=== PATIENT | female | born 1955 | race Two or more races ===

== ENCOUNTER 2023-12-15 12:35 | Emergency (ER) | payer BC, OTHER ==
[~2023-12-15] VITALS: Ht 157.5 cm; Wt 85.0 kg
[2023-12-15 14:04] LABS: Urine Bacteria FEW /hpf (None Seen); Urine Blood Negative /uL (Negative); Urine Clarity HAZY (Clear); Urine Color Straw (Yellow); Urine Mucus FEW (None Seen); Urine Protein, UAD Negative (Negative); Urine Specific Gravity 1.019 (1.001-1.035); Urine Urobilinogen Normal (Negative); Urine WBC 17 /hpf (0 - 5)
[2023-12-15 14:53] LABS: Basophils # (auto) 0 10 ^3/uL (0-0.2); Eosinophils # (auto) 0.2 10 ^3/uL (0-0.8); Eosinophils % (auto) 2.1 % (0.0-7.0); Lymphocytes # (auto) 1.4 10 ^3/uL (0.4-5.4); Mean Corpuscular Hemoglobin 19.2 pg (28.0-32.0); Nucleated Red Blood Cells % 0.1 %
[2023-12-15 14:55] LABS: Basophils % (auto) 0.3 % (0.0-2.0); Hematocrit 32.9 % (36.0-46.0); Hemoglobin 9.9 g/dL (12.2-16.2); Lymphocytes % (auto) 12.1 % (10.0-50.0); Mean Corpuscular Volume 63.9 fL (80.0-100.0); Monocytes # (auto) 0.5 10 ^3/uL (0-1.3); Neutrophils # (auto) 9.2 10 ^3/uL (1.6-8.6); Neutrophils % (auto) 81.5 % (37.0-80.0); Red Blood Cells 5.14 10^6/uL (4.0-5.20); Red Cell Distribution Width 14.9 % (11.8-14.3); White Blood Cell 11.3 10^3/uL (4.4-10.8)
[2023-12-15] MEDS ORDERED: SULFAMETHOX W/TRIMETH(800/160MG) DS TAB PO ONE (15:00)
[2023-12-15 15:12] LABS: Alanine Aminotransferase 21 U/L (7-40); Albumin 4.4 g/dL (3.2-4.8); Alkaline Phosphatase 113 U/L (46-116); Anion Gap 5 (5-15); Aspartate Aminotransferase 15 U/L (13-40); BUN/Creatinine Ratio 35.7 (10.0-20.0); Bilirubin, Total 0.6 mg/dL (0.2-1.0); Blood Urea Nitrogen 25 mg/dL (9-23); Calcium 9.3 mg/dL (8.7-10.4); Carbon Dioxide 27 mmol/L (20-30); Chloride 106 mmol/L (98-107); Glucose 111 mg/dL (74-106); Potassium 4.6 mmol/L (3.5-5.1); Sodium 138 mmol/L (136-145)
[2023-12-15 15:13] LABS: Total Protein 6.9 g/dL (5.7-8.2)
[2023-12-15] MEDS ORDERED: ZOFR4T PO ×3 (15:24→16:26)
[2023-12-15] MEDS ORDERED: BACDST PO ×3 (15:24→16:26)
[2023-12-15] MEDS ORDERED: ALBU108A5 IN ×3 (15:24→16:26)
[2023-12-15] MEDS ORDERED: MECL1TAB42 PO ×3 (15:24→16:26)
[2023-12-15] MEDS ORDERED: DOCU-94 PO ×3 (15:29→16:26)
[2023-12-15] MEDS ORDERED: FER325T PO ×3 (15:29→16:26)
[2023-12-15 15:58] VITALS: BP 137/55; PULSE 76; RESP 16; TEMP 98.6; O2SAT 98
[2023-12-15 16:26] LABS: Anisocytosis Slight; Hypochromia Marked; Ovalocytes FEW; Platelet Estimate Adequate
[2023-12-15 16:27] LABS: Tear Drop Cells FEW
== END 2023-12-15 15:59 | disposition home or self-care (01) ==
LOC: ER 12:35
DX: D64.9 Anemia, unspecified (principal); N39.0 Urinary tract infection, site not specified; I10 Essential (primary) hypertension; E11.9 Type 2 diabetes mellitus without complications; Z79.899 Other long term (current) drug therapy
CPT/HCPCS: 36415; 70450; 80053; 81001; 82962; 84484; 85025; 93005

== ENCOUNTER 2025-02-06 06:54 | Inpatient (IN) | payer BC, MEDICARE ==
[2025-02-06] VITALS (8 sets, daily range): BP systolic 100–124; BP diastolic 45–53; PULSE 67–71; RESP 16; TEMP 97.6–98.6; O2SAT 93–100
[~2025-02-06] VITALS: Ht 157.5 cm; Wt 82.7 kg
[~2025-02-06 06:54] MED LIST: ALBU108A5 IN; AZIT-74 PO; DOCU-94 PO; FER325T PO; MECL1TAB42 PO; METH4PAK PO; ZOFR4T PO
--- NOTE | 2025-02-06 07:15 | ECG ---
[facility] Test Date: 2025-02-06 Test Time: 07:00:10 Pat Name: JAY TAYLOR Department: ER [facility] F Soil Chemist: JAIME : 1955 Requested By: LARISA SIMMS Order Number: [id number] Reading MD: Jose Graham Measurements Intervals [place] Rate: 66 P: 75 DC: 169 QRS: 27 QRSD: 100 T: 46 QT: 493 QTc: 517 Interpretive Statements Sinus rhythm Prolonged QT interval Electronically Signed On 02-10-2025 18:40:36 PDT by Jose Graham Please click the below link to view image of tracing.
--- NOTE | 2025-02-06 07:20 | ED.PDOC ---
History of Present Illness HPI Comments 69 year old female brought in by EMS presents to the ED with a chief complaint of syncope onset today (02/06/25) around 05:00. Per EMS, patient went to the bathroom, got up was experiencing dizziness, hit the RT isde head on tile armando, when she woke up she walked to the couch and called family who lives next door. Upon EMS arrival all VSS, patient was experiencing neck pain, nausea, C-collar was placed, Zofran was given. Patient states she is currently experiencing dizziness, neck pain, rates 10/10 pain, eye redness with discomfort. PMHx HTN, DM, HLD, breast cancer, asthma. Denies chest pain, shortness of breath, vomiting, diarrhea, abdominal pain. No other symptoms or modifying factors present at this time\. Time Seen by MD: 07:12 Primary Care Provider: ARELI Reviewed Notes: Medications, Allergies Allergies: Coded Allergies: Amoxicillin (Verified Allergy, Severe, 03/10/24) Clavulanic Acid (Verified Allergy, Unknown, 03/10/24) Home Meds Active Scripts Azithromycin (Zithromax) 250 Mg Tab, 250 MG PO DAILY for 3 Days, #3 TAB Prov:RAINER ZACARIAS MD 03/13/24 Methylprednisolone (Medrol Dosepak) 4 Mg Marlo, 4 MG PO UD, #21 TAB UAD Prov:RAINER ZACARIAS MD 03/13/24 Albuterol Sulfate (Albuterol Sulfate Hfa) 108 Mcg/Act Aer, 108 MCG IN Q4HP PRN, #1 AER Prov:KALEE BENITEZ MD 03/09/24 Docusate Sodium (Colace) 100 Mg Cap, 1 CAP PO BID, #30 CAP Prov:ANGEL WHITEHEAD PAC 12/15/23 Ferrous Sulfate (FERROUS SULFATE) 325 Mg Tb, 1 TAB PO DAILY, #30 TAB 3 Refills Prov:ANGEL WHITEHEAD PAC 12/15/23 Ondansetron Odt 4MG Tab (ZOFRAN PO) 4 Mg Tb, 4 MG PO Q6HP PRN, #15 TAB ODT TAB-DISSOLVE IN MOUTH, THEN SWALLOW Prov:ANGEL WHITEHEAD PAC 12/15/23 Meclizine HCl (Meclizine 25) 25 Mg Tab, 25 MG PO Q12HP PRN, #10 TAB Prov:ANGEL WHITEHEAD PAC 12/15/23 Information Source: Patient Mode of Arrival: EMS Severity: Moderate Timing: Hours Duration: Since onset Prehospital treatment: C-Collar, Other (Zofran) Past Medical History PAST MEDICAL HISTORY: Asthma, Cancer, DM, High Lipids, HTN Surgical History: Denies all surgeries 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 Family History Family History: No family hx of Heart jyothi, No family hx of HTN, No family hx ofKidney jyothi, No family hx of Liver jyothi, No family hx of Lung jyothi, No family hx of Stroke, Family hx of DM, Family hx of Cancer Social History Smoker: Non-Smoker, Secondhand Alcohol: Denies ETOH Use Drugs: Denies Drug Use Lives In: Home Constitutional: denies: chills, diaphoresis, fatigue, fever, malaise, sweats, weakness, others EENTM: reports: eye redness; denies: blurred vision, double vision, ear bleeding, ear discharge, ear drainage, ear pain, ear ringing, eye pain, hearing loss, mouth pain, mouth swelling, nasal discharge, nose bleeding, nose congestion, nose pain, photophobia, tearing, throat pain, throat swelling, voice changes, others Respiratory: denies: cough, hemoptysis, orthopnea, SOB at rest, shortness of breath, SOB with excertion, stridor, wheezing, others Cardiovascular: denies: chest pain, dizzy spells, diaphoresis, Dyspnea on exertion, edema, irregular heart beat, left arm pain, lightheadedness, palpitations, PND, syncope, others Gastrointestinal: reports: nausea; denies: abdomen distended, abdominal pain, blood streaked bowels, constipated, diarrhea, dysphagia, difficulty swallowing, hematemesis, melena, poor appetite, poor fluid intake, rectal bleeding, rectal pain, vomiting, others Neurological: reports: dizziness, headache (RT side ); denies: fainting, left sided numbness, left sided weakness, numbness, paresthesia, pre-existing deficit, right sided numbness, right sided weakness, seizure, speech problems, tingling, tremors, weakness, others Musculoskeletal: reports: neck pain; denies: back pain, gout, joint pain, joint swelling, muscle pain, muscle stiffness, others Integumetry: denies: bruises, change in color, change in hair/nails, dryness, laceration, lesions, lumps, rash, wounds, others Allergic/Immunocompromised: denies: Difficulty Healing, Frequent Infections, Hives, Itching, others Hematologic/Lymphatic: denies: anemia, blood clots, easy bleeding, easy bruising, swollen glands, others Endocrine: denies: excessive hunger, excessive sweating, excessive thirst, excessive urination, flushing, intolerance to cold, intolerance to heat, unexplained weight gain, unexplained weight loss, others Psychiatric: denies: anxiety, bipolar disorder, depression, hopeless, panic disorder, schizophrenia, sleepless, suicidal, others All Other Systems: Reviewed and Negative Physical Exam General Appearance: No Apparent Distress, Normal HEENT: Normal ENT Inspection, Pharynx Normal, TMs Normal Neck: Full Range of Motion, Non-Tender, Normal, Normal Inspection Respiratory: Chest Non-Tender, Lungs Clear, No Accessory Muscle Use, No Respiratory Distress, Normal Breath Sounds Cardiovascular: No Edema, No JVD, No Murmur, No Gallop, Normal Peripheral Pulses, Regular Rate/Rhythm Breast Exam: Deferred Gastrointestinal: No Organomegaly, Non Tender, No Pulsatile Mass, Normal Bowel Sounds, Soft Genitalia: Deferred Pelvic: Deferred Rectal: Deferred Extremities: No calf tenderness, Normal capillary refill, Normal inspection, Normal range of motion, Non-tender, No pedal edema Musculoskeletal : Apperance: Normal Neurologic: Alert, technical spec II-XII nml as Tested, No Motor Deficits, Normal Affect, Normal Mood, No Sensory Deficits Cerebellar Function: Normal Reflexes: Normal Skin: Dry, Normal Color, Warm Lymphatic: No Adenopathy Was a procedure done? Was a procedure done?: No Differential Dx Considerations may include: ACS, CVA, cardiac arrhythmia, electrolyte abnormalities, infectious etiology X-Ray, Labs, Meds, VS Vital Signs Date Time Temp Pulse Resp B/P (MAP) Pulse Ox O2 Delivery O2 Flow Rate FiO2 02/06/25 07:17 98.9 67 18 165/67 (99) 98 02/06/25 07:00 66 Lab Test 02/06/25 07:36 Range/Units White Blood Count 12.3 H 4.4-10.8 10^3/uL Red Blood Count 5.69 H 4.0-5.20 10^6/uL Hemoglobin 10.8 L 12.2-16.2 g/dL Hematocrit 35.7 L 36.0-46.0 % Mean Corpuscular Volume 62.8 L 80.0-100.0 fL Mean Corpuscular Hemoglobin 18.9 L 28.0-32.0 pg Mean Corpuscular Hemoglobin Concent 30.1 L 32.0-36.0 g/dL Red Cell Distribution Width 15.3 H 11.8-14.3 % Platelet Count 296 140-450 10^3/uL Mean Platelet Volume 9.0 6.9-10.8 fL Neutrophils (%) (Auto) 81.9 H 37.0-80.0 % Lymphocytes (%) (Auto) 11.5 10.0-50.0 % Monocytes (%) (Auto) 3.9 0.0-12.0 % Eosinophils (%) (Auto) 2.5 0.0-7.0 % Basophils (%) (Auto) 0.2 0.0-2.0 % Neutrophils # (Auto) 10.1 H 1.6-8.6 10 ^3/uL Lymphocytes # (Auto) 1.4 0.4-5.4 10 ^3/uL Monocytes # (Auto) 0.5 0-1.3 10 ^3/uL Eosinophils # (Auto) 0.3 0-0.8 10 ^3/uL Basophils # (Auto) 0 0-0.2 10 ^3/uL Nucleated Red Blood Cells 0.1 % Platelet Estimate Pending Sodium Level 139 136-145 mmol/L Potassium Level 3.8 3.5-5.1 mmol/L Chloride Level 104 98-107 mmol/L Carbon Dioxide Level 28 20-31 mmol/L Anion Gap 7 5-15 Blood Urea Nitrogen 24 H 9-23 mg/dL Creatinine 0.82 0.550-1.02 mg/dL Glomerular Filtration Rate Calc 76 >90 mL/min BUN/Creatinine Ratio 29.3 H 10.0-20.0 Serum Glucose 161 H 74-106 mg/dL Calcium Level 9.5 8.7-10.4 mg/dL Troponin I High Sensitivity 3 L </=34 ng/L [facility] [id number] [place] [id number] Ph: [phone] DIAGNOSTIC IMAGING Diagnostic Imaging Report : [id number] Signed PATIENT: JAY TAYLOR ACCT: [id number] UNIT: [id number] : 1955 LOC: ER ROOM / BED: / AGE / SEX: 69 / F ADM STATUS: REG ER SERVICE 3 ORDERING PHYSICIAN: LARISA SIMMS MD PROCEDURE(s): CS2 - CERVICAL WITHOUT CONTRAST REASON: syncope ORDER NUMBER(s): [id number], ACCESSION NUMBER(s): [id number] EXAM: CT CERVICAL WITHOUT CONTRAST INDICATION: syncope EXAM DATE: 02/06/2025 07:44 AM COMPARISON: None TECHNIQUE: Multiple axial CT images of the cervical spine were obtained using bone algorithm. Axial and coronal reformatting was done. Bone and soft tissue windows were reviewed. Radiation Dose Information: CT Dose: CTDI volume is 23.9 mGy. Dose-length product is 662.6 mGy*cm FINDINGS: The cervical alignment is intact. No acute cervical spine fracture is identified. The vertebral body heights are intact. No suspicious osseous lesions are identified. No significant degenerative changes are identified. No significant spinal or neural foraminal stenosis. There is no prevertebral soft tissue swelling. The lung apices are clear. IMPRESSION: 1. No evidence of acute cervical spine fracture or traumatic malalignment. All CT scans at this medical facility are performed using dose modulation techniques as appropriate to a performed exam including the following: Automated exposure control was utilized; adjustment of the MA and/or KV according to patient size; and use of iterative reconstruction technique. ATED BY: MOSHE LAMBERT MD DICTATED DATE/TIME: 02/06/25812 SIGNED BY: MOSHE LAMBERT MD SIGNED DATE/TIME: 02/06/25812 CC: [place] [id number] Ph: [phone] DIAGNOSTIC IMAGING Diagnostic Imaging Report : [id number] Signed PATIENT: JAY TAYLOR ACCT: [id number] UNIT: [id number] : 1955 LOC: ER ROOM / BED: / AGE / SEX: 69 / F ADM STATUS: REG ER SERVICE 3 ORDERING PHYSICIAN: LARISA SIMMS MD PROCEDURE(s): CXRP - CHEST PORTABLE REASON: syncope ORDER NUMBER(s): [id number], ACCESSION NUMBER(s): [id number] EXAM: XY CHEST PORTABLE Indication: syncope Technique: Single frontal view of the chest was obtained Comparison: XY CHEST PORTABLE on DOS: 03/13/24, XY CHEST PORTABLE on DOS: 03/11/24, XY CHEST PORTABLE on DOS: 03/09/24 FINDINGS: Lines and Tubes: None Lungs: No focal consolidation. Pleura: No effusion. No pneumothorax. Cardiomediastinal contours: Unremarkable Bones: No acute osseous abnormality. IMPRESSION: No acute cardiopulmonary disease. ATED BY: YADIEL THOMAS MD DICTATED DATE/TIME: 02/06/25809 SIGNED BY: YADIEL THOMAS MD SIGNED DATE/TIME: 02/06/25809 CC: [place] [id number] Ph: [phone] DIAGNOSTIC IMAGING Diagnostic Imaging Report : [id number] Signed PATIENT: JAY TAYLOR ACCT: [id number] UNIT: [id number] : 1955 LOC: ER ROOM / BED: / AGE / SEX: 69 / F ADM STATUS: REG ER SERVICE 3 ORDERING PHYSICIAN: LARISA SIMMS MD PROCEDURE(s): HWOCT - HEAD WITHOUT CONTRAST REASON: syncope ORDER NUMBER(s): [id number], ACCESSION NUMBER(s): [id number] CLINICAL INFORMATION: 69 years old, Female; syncope. TECHNIQUE: Axial imaging was obtained through the brain without contrast. Coronal and sagittal reformatted images were obtained, reviewed, and stored. Images were reviewed in brain and bone windows. All CT scans at this medical facility are performed using dose modulation techniques as appropriate to a performed exam including the following: Automated exposure control was utilized; adjustment of the MA and/or KV according to patient size; and use of iterative reconstruction technique. CTDIvol = 66.62, 0.07, 0.07 mGy DLP = 1310.87, 3.16, 3.16 mGy-cm COMPARISON: CT HEAD WITHOUT CONTRAST on DOS: 12/15/23 FINDINGS: There is no acute intracranial hemorrhage. No mass effect or midline shift. Encephalomalacia in the left anterior frontal lobe and left temporal lobe appear similar compared to the prior exam. The ventricles and sulci are within normal limits in size for age. Basal cisterns are patent. Postsurgical changes in the left frontoparietal and temporal calvarium appear similar compared to the prior exam. There is a moderate right frontal scalp hematoma. Mild mucosal thickening of the paranasal sinuses. Mastoid air cells are clear. IMPRESSION: 1. No CT evidence of acute intracranial abnormality. 2. Moderate right frontal scalp hematoma. 3. Stable appearing postsurgical changes and areas of encephalomalacia as described above. ATED BY: RD CORONADO DO DICTATED DATE/TIME: 02/06/25813 SIGNED BY: RD CORONADO DO SIGNED DATE/TIME: 02/06/25813 CC: Time of 1ST Reevaluation: 08:48 Reevaluation 1ST: Improved Patient Education/Counseling: Diagnosis, Treatment Family Education/Counseling: No Family Present Additional Information The following tests were ordered, and results were reviewed by me: EKG, BMP, CBC, TROP -x3, UA, XY CHEST, CT HEAD WITHOUT CONTRAST, CT CERVICAL WITHOUT CONTRAST, Additional Information was gathered from interviewing the following independent historians: EMS I reviewed and agreed with the following test results read by other providers: XY CHEST, CT HEAD WITHOUT CONTRAST, CT CERVICAL WITHOUT CONTRAST, I discussed treatment and results with medical personnel and: patient Departure 1 Departure Time of Disposition: 08:47 (Patient presented with syncope today and should be admitted. Data: 1. I ordered and reviewed the result of at least 3 labs including a CBC, BMP, and troponin. 2. I independently interpreted the following tests: EKG which shows a normal sinus rhythm and a chest x-ray which shows benign chest and a CT head which shows benign brain.Risk:This patient has a high risk of morbidity due to further diagnostic testing or treatment and may suffer from an acute cardiac, neurologic, or infectious disorder. Rationale: Patient should be admitted to the hospital for further management.) Impression: Primary Impression: Syncope and collapse Additional Impression: Generalized weakness Disposition: 09 ADMITTED INPATIENT Admit to: Med Surg Condition: Serious Critical Care Note Critical Care Time?: No Stability Stability form required: No I personally scribed for LARISA SIMMS MD ([email or web address]) on 02/06/25 at 07:20. Electronically submitted by Katie Rodriguez ([email or web address]). I personally scribed for LARISA SIMMS MD ([email or web address] on 02/06/25 at 07:21. Electronically submitted by Katie Rodriguez ([email or web address]). I personally scribed for LARISA SIMMS MD ([email or web address]) on 02/06/25 at 08:32. Electronically submitted by Katie Rodriguez ([email or web address]). LARISA SIMMS MD Feb 06, 2025 07:20
[2025-02-06 08:01] LABS: Basophils # (auto) 0 10 ^3/uL (0-0.2); Hemoglobin 10.8 g/dL (12.2-16.2); Lymphocytes # (auto) 1.4 10 ^3/uL (0.4-5.4); Mean Corpuscular Hemoglobin 18.9 pg (28.0-32.0)
[2025-02-06 08:03] LABS: Basophils % (auto) 0.2 % (0.0-2.0); Eosinophils # (auto) 0.3 10 ^3/uL (0-0.8); Eosinophils % (auto) 2.5 % (0.0-7.0); Hematocrit 35.7 % (36.0-46.0); Lymphocytes % (auto) 11.5 % (10.0-50.0); Mean Corpuscular Hgb Conc. 30.1 g/dL (32.0-36.0); Mean Corpuscular Volume 62.8 fL (80.0-100.0); Monocytes # (auto) 0.5 10 ^3/uL (0-1.3); Monocytes % (auto) 3.9 % (0.0-12.0); Neutrophils # (auto) 10.1 10 ^3/uL (1.6-8.6); Neutrophils % (auto) 81.9 % (37.0-80.0); Nucleated Red Blood Cells % 0.1 %; Platelet Count (auto) 296 10^3/uL (140-450); Red Blood Cells 5.69 10^6/uL (4.0-5.20); Red Cell Distribution Width 15.3 % (11.8-14.3); White Blood Cell 12.3 10^3/uL (4.4-10.8)
--- NOTE | 2025-02-06 08:11 | DVH ---
EXAM: XY CHEST PORTABLE Indication: syncope Technique: Single frontal view of the chest was obtained Comparison: XY CHEST PORTABLE on DOS: 03/13/24, XY CHEST PORTABLE on DOS: 03/11/24, XY CHEST PORTABLE o n DOS: 03/09/24 FINDINGS: Lines and Tubes: None Lungs: No focal consolidation. Pleura: No effusion. No pneumothorax. Cardiomediastinal contours: Unremarkable Bones: No acute osseous abnormality. IMPRESSION: No acute cardiopulmonary disease.
[2025-02-06 08:12] LABS: Chloride 104 mmol/L (98-107); Potassium 3.8 mmol/L (3.5-5.1); Sodium 139 mmol/L (136-145)
[2025-02-06 08:13] LABS: Anion Gap 7 (5-15); Calcium 9.5 mg/dL (8.7-10.4); Carbon Dioxide 28 mmol/L (20-31)
--- NOTE | 2025-02-06 08:15 | DVH ---
EXAM: CT CERVICAL WITHOUT CONTRAST INDICATION: syncope EXAM DATE: 02/06/2025 07:44 AM COMPARISON: None TECHNIQUE: Multiple axial CT images of the cervical spine were obtained using bone algorithm. Axial a nd coronal reformatting was done. Bone and soft tissue windows were reviewed. Radiation Dose Information: CT Dose: CTDI volume is 23.9 mGy. Dose-length product is 662.6 mGy*cm FINDINGS: The cervical alignment is intact. No acute cervical spine fracture is identified. The vertebral body heights are intact. No suspicious osseous lesions are identified. No significant degenerative changes are identified. No significant spinal or neural foraminal stenosi s. There is no prevertebral soft tissue swelling. The lung apices are clear. IMPRESSION: 1. No evidence of acute cervical spine fracture or traumatic malalignment. All CT scans at this medical facility are performed using dose modulation techniques as appropriate t o a performed exam including the following: Automated exposure control was utilized; adjustment of th e MA and/or KV according to patient size; and use of iterative reconstruction technique.
--- NOTE | 2025-02-06 08:16 | DVH ---
CLINICAL INFORMATION: 69 years old, Female; syncope. TECHNIQUE: Axial imaging was obtained through the brain without contrast. Coronal and sagittal reform atted images were obtained, reviewed, and stored. Images were reviewed in brain and bone windows. Al l CT scans at this medical facility are performed using dose modulation techniques as appropriate to a performed exam including the following: Automated exposure control was utilized; adjustment of the MA and/or KV according to patient size; and use of iterative reconstruction technique. CTDIvol = 66.6 2, 0.07, 0.07 mGy DLP = 1310.87, 3.16, 3.16 mGy-cm COMPARISON: CT HEAD WITHOUT CONTRAST on DOS: 12/15/23 FINDINGS: There is no acute intracranial hemorrhage. No mass effect or midline shift. Encephalomalaci a in the left anterior frontal lobe and left temporal lobe appear similar compared to the prior exam. The ventricles and sulci are within normal limits in size for age. Basal cisterns are patent. Posts urgical changes in the left frontoparietal and temporal calvarium appear similar compared to the prio r exam. There is a moderate right frontal scalp hematoma. Mild mucosal thickening of the paranasal si nuses. Mastoid air cells are clear. IMPRESSION: 1. No CT evidence of acute intracranial abnormality. 2. Moderate right frontal scalp hematoma. 3. Stable appearing postsurgical changes and areas of encephalomalacia as described above.
[2025-02-06 08:18] LABS: BUN/Creatinine Ratio 29.3 (10.0-20.0)
[2025-02-06 08:19] LABS: Blood Urea Nitrogen 24 mg/dL (9-23); Glucose 161 mg/dL (74-106)
[2025-02-06 08:54] LABS: Hypochromia Marked; Platelet Estimate Adequate
[2025-02-06 08:55] LABS: Ovalocytes FEW; Target Cell FEW; Tear Drop Cells FEW
[2025-02-06] MEDS ORDERED: MORPHINE SULFATE INJ 2 MG/ml SYRG IV PRN (09:15)
[2025-02-06] MEDS ORDERED: ACETAMINOPHEN 325 MG TAB PO PRN (09:15)
[2025-02-06] MEDS ORDERED: NITROGLYCERIN 0.4 MG SL TAB SL PRN (09:15)
[2025-02-06] MEDS ORDERED: DOCUSATE SOD 100 MG CAP PO PRN (09:15)
[2025-02-06] MEDS ORDERED: EMPA1TAB3 PO (09:44)
[2025-02-06] MEDS ORDERED: ATOR20TA50 PO (09:44)
[2025-02-06] MEDS ORDERED: HYDR-3682 PO (09:44)
[2025-02-06] MEDS ORDERED: LISI20TA56 PO (09:44)
[2025-02-06] MEDS ORDERED: LIRA18IN2 SUBCUT (09:44)
[2025-02-06] MEDS ORDERED: LORA-622 PO (09:44)
[2025-02-06] MEDS ORDERED: ALBUTEROL SULF HFA 90MCG INH 200DOSE IN PRN (09:45)
--- NOTE | 2025-02-06 09:47 | DVHHP2 ---
History of Present Illness Reason for Visit: Syncope and collapse History of Present Illness Sri Cheng is a 69-year-old female with past medical history of hypertension, diabetes, hyperlipidemia, asthma, and new diagnosis of breast cancer who came in for a syncopal event. Patient states she was at home on her couch and needed to get up to use the restroom. When she walked to the bathroom she was feeling dizzy. She remembers resting her head on the sink, urinating, then waking up on the floor. She states she was on the floor for a few minutes because she was too dizzy to get up. She touched her head and felt a bump and pain on the right side of her head, but does not remember hitting her head. When she felt a little better she ambulated to the couch and called her daughter who lives next door. Her daughter called EMS. When EMS arrived the patient was still dizzy, nauseated, and complaining of pain to her head and neck. Cardiovascular: HTN, hyperipidemia Pulmonary: Asthma Heme/Onc: Cancer (right breast) Endocrine: Diabetes Past Surgical History: Appendectomy, Hernia Repair, Other (Brain surgery, tubal ) Family History: None Smoke: No ALCOHOL: none Drugs: None Lives: Alone Review of Systems Constitutional: No: Fever, Chills, Sweats, Weakness, Malaise, Other Eyes: No: Pain, Vision change, Conjunctivae inflammation, Eyelid inflammation, Other, Redness ENT: No: Ear pain, Ear discharge, Nose pain, Nose discharge, Nose congestion, Mouth pain, Mouth swelling, Throat pain, Throat swelling, Other Respiratory: No: Cough, Dry, Shortness of breath, SOB with excertion, Wheezing, Hemoptysis, Pleuritic Pain, Sputum, Wheezing, Other Cardiovascular: No: Chest Pain, Palpitations, Orthopnea, Paroxysmal Noc. Dyspnea, Edema, Lt Headedness, Other Gastrointestinal: No: Nausea, Vomiting, Abdominal Pain, Diarrhea, Constipation, Melena, Hematochezia, Other Genitourinary: No Dysuria, No Frequency, No Incontinence, No Hematuria, No Retention, No Other Musculoskeletal: No: other, neck pain, shoulder pain, arm pain, back pain, hand pain, leg pain, foot pain Skin: No: Rash, Lesions, Jaundice, Bruising, Other Neurological: Weakness, Incoordination, Other (dizzines, syncopal episode); No: Numbness, Change in speech, Confusion, Seizures Allergies: Coded Allergies: Amoxicillin (Verified Allergy, Severe, 03/10/24) Clavulanic Acid (Verified Allergy, Unknown, 03/10/24) Exam Vital Signs Vital Signs Date Time Temp Pulse Resp B/P (MAP) Pulse Ox O2 Delivery O2 Flow Rate FiO2 02/06/25 07:50 97.6 71 16 124/45 (71) 93 97.6 General Appearance: Alert, Oriented X3, Cooperative, moderate distress HEENT: Atraumatic, PERRLA Respiratory: Clear to auscultation, Normal air movement Cardiovascular: Regular rate, Normal S1, Normal S2 Abdominal: Normal bowel sounds, Soft, No tenderness Extremities: No clubbing, No cyanosis, No edema, Normal pulses Skin: No rashes, No breakdown, No significant lesion Neuro: Normal gait, Normal speech, Strength at 5/5 X4 ext, Normal tone Psych/Mental Status: Mental status NL, Mood NL Labs/Xrays Labs Test 02/06/25 07:36 Range/Units White Blood Count 12.3 H 4.4-10.8 10^3/uL Red Blood Count 5.69 H 4.0-5.20 10^6/uL Hemoglobin 10.8 L 12.2-16.2 g/dL Hematocrit 35.7 L 36.0-46.0 % Mean Corpuscular Volume 62.8 L 80.0-100.0 fL Mean Corpuscular Hemoglobin 18.9 L 28.0-32.0 pg Mean Corpuscular Hemoglobin Concent 30.1 L 32.0-36.0 g/dL Red Cell Distribution Width 15.3 H 11.8-14.3 % Platelet Count 296 140-450 10^3/uL Mean Platelet Volume 9.0 6.9-10.8 fL Neutrophils (%) (Auto) 81.9 H 37.0-80.0 % Lymphocytes (%) (Auto) 11.5 10.0-50.0 % Monocytes (%) (Auto) 3.9 0.0-12.0 % Eosinophils (%) (Auto) 2.5 0.0-7.0 % Basophils (%) (Auto) 0.2 0.0-2.0 % Neutrophils # (Auto) 10.1 H 1.6-8.6 10 ^3/uL Lymphocytes # (Auto) 1.4 0.4-5.4 10 ^3/uL Monocytes # (Auto) 0.5 0-1.3 10 ^3/uL Eosinophils # (Auto) 0.3 0-0.8 10 ^3/uL Basophils # (Auto) 0 0-0.2 10 ^3/uL Nucleated Red Blood Cells 0.1 % Platelet Estimate Adequate Hypochromasia (manual) Marked Microcytosis Marked Target Cells Few Tear Drop Cells Few Ovalocytes Few Sodium Level 139 136-145 mmol/L Potassium Level 3.8 3.5-5.1 mmol/L Chloride Level 104 98-107 mmol/L Carbon Dioxide Level 28 20-31 mmol/L Anion Gap 7 5-15 Blood Urea Nitrogen 24 H 9-23 mg/dL Creatinine 0.82 0.550-1.02 mg/dL Glomerular Filtration Rate Calc 76 >90 mL/min BUN/Creatinine Ratio 29.3 H 10.0-20.0 Serum Glucose 161 H 74-106 mg/dL Calcium Level 9.5 8.7-10.4 mg/dL Troponin I High Sensitivity 3 L </=34 ng/L PROCEDURE(s):CT HEAD WITHOUT CONTRAST FINDINGS: There is no acute intracranial hemorrhage. No mass effect or midline shift. Encephalomalacia in the left anterior frontal lobe and left temporal lobe appear similar compared to the prior exam. The ventricles and sulci are within normal limits in size for age. Basal cisterns are patent. Postsurgical changes in the left frontoparietal and temporal calvarium appear similar compared to the prior exam. There is a moderate right frontal scalp hematoma. Mild mucosal thickening of the paranasal sinuses. Mastoid air cells are clear. IMPRESSION: 1. No CT evidence of acute intracranial abnormality. 2. Moderate right frontal scalp hematoma. 3. Stable appearing postsurgical changes and areas of encephalomalacia as described above. EXAM: XY CHEST PORTABLE FINDINGS: Lines and Tubes: None Lungs: No focal consolidation. Pleura: No effusion. No pneumothorax. Cardiomediastinal contours: Unremarkable Bones: No acute osseous abnormality. IMPRESSION: No acute cardiopulmonary disease. EXAM: CT CERVICAL WITHOUT CONTRAST FINDINGS: The cervical alignment is intact. No acute cervical spine fracture is identified. The vertebral body heights are intact. No suspicious osseous lesions are identified. No significant degenerative changes are identified. No significant spinal or neural foraminal stenosis. There is no prevertebral soft tissue swelling. The lung apices are clear. IMPRESSION: 1. No evidence of acute cervical spine fracture or traumatic malalignment. Assessment/Plan Assessment/Plan Assessment: Syncope and collapse, Hypertension, Hyperlipidemia, Diabetes, Asthma, Plan: Admit to Tele, Cardiology consult, Neurology consult, ECHO, Carotid duplex, TSH, A1c, Consider MRI of brain, Home medications reconciled, Plan discussed with: Patient My Orders Orders - YESSI FRITZ Procedure Category Date Status Time Admit ADMIT 02/06/25 Transmitted 09:13 Code Status CODE 02/06/25 Transmitted 09:13 2 Gm Sodium Diet DIET 02/06/25 Transmitted Breakfast Sodium Chloride Lock PHA 02/06/25 Transmitted (Saline Lock Ns) 14:00 Hydrocodone-Acet PHA 02/06/25 Transmitted 5/325mg Tab ([place] 09:15 Ondansetron Hcl PHA 02/06/25 Transmitted (Zofran) 09:15 Docusate Sodium PHA 02/06/25 Transmitted Capsule (Colace 09:15 Fall Risk Precautions [facility] 02/06/[address] 09:13 Complete Blood Count LAB 02/07/25 Verified 04:00 Comprehensive LAB 02/07/25 Verified Metabolic Panel 04:00 Echo 2d Mode Cardiac US 02/06/25 Transmitted DOP 09:13 Carotid Duplx W Color US 02/06/25 Transmitted DOP 09:13 Condition: Critical [facility] 02/06/25 Transmitted 09:13 Acetaminophen Tablet PHA 02/06/25 Transmitted (Tylenol Tablet) 09:15 Nitroglycerin [facility] 02/06/25 Transmitted Sublingual (Ntrostat 09:15 Morphine Sulfate PHA 02/06/25 Transmitted Injection 09:15 Stat Ekg For Chest [facility] 02/06/25 Transmitted Pain 09:13 Notify Md Of Changes [facility] 02/06/25 Transmitted From Base 09:13 Reservations Manager For [facility] 02/06/25 Transmitted 24 Hours 09:13 Emergency Dysrhythmia [facility] 02/06/25 Transmitted Protocol 09:13 Rhythm Strips Once [facility] 02/06/25 Transmitted Every Shift 09:13 Oxygen By Nasal RT 02/06/25 Transmitted Cannula 09:13 Ketorolac Injection [facility] 02/06/25 Transmitted (Toradol Injection) 09:15 Date of Service: Feb 06, 2025 Billing Provider: SCHWING,YESSI R TRAFFIC OBSERVER Common Visit Codes: [id number] INP/OBS CARE (HIGH) YESSI FRITZ TRAFFIC OBSERVER Feb 06, 2025 09:47
[2025-02-06] MEDS: [UNRECOGNIZED DRUG - OTHER] SC SCH (10:00)
[2025-02-06] MEDS: EMPAGLIFLOZIN 10 MG TAB PO SCH (10:00)
[2025-02-06] MEDS: LIRAGLUTIDE SC SCH (10:00)
[2025-02-06] MEDS ORDERED: Empagliflozin (Jardiance) 25 MG TABLET PO SCH (10:00)
[2025-02-06] MEDS ORDERED: ALBUTEROL SULF 2.5 MG/0.5ML(0.5%) NEB SOLN NEB PRN (10:30)
[2025-02-06] MEDS: KETOROLAC TROMETH 30 MG/ML 1ML VIAL IV PRN (10:31)
--- NOTE | 2025-02-06 11:31 | DVHINCON2 ---
RYAN PITTS [facility] 02/06/25 1131: Date Seen: Feb 06, 2025 Referring Physician SAMSON Johnson Reason for Consultation Syncope History of Present Illness This is a 69-year-old female who presented to the emergency room via EMS with a chief complaint of syncopal event. At time of assessment the patient was found A&O x4. States she was sitting on her couch when she felt a cold sensation. Upon standing up to use the bathroom she developed some dizziness. Once in the bathroom she experienced a syncopal event for an unknown amount of time. She stood up from the floor with a headache and more dizziness calling her daughter for aid right after who called 911. Upon EMS arrival she was placed on a C- collar, underwent a 12-lead ECG revealing a NSR, found with a BGL of 191 ng/dL, and was administered Zofran 4 mg IV. Denies chest pain, palpitations, diaphoresis, or SOB. Denies any recent changes to medical therapy at home. She underwent a 12 lead electrocardiogram revealing a sinus rhythm with a prolonged QTC at 517 ms. Troponin levels are negative. C/o neck pain which is worse with movement and ROQUE. Significant medical history includes hypertension, dyslipidemi a, insulin-dependent diabetes mellitus, right breast cancer, asthma, and morbid obesity. Past Medical History Past medical history reviewed. No other significant than mentioned above. Past Surgical History Appendectomy Hernia repair Brain surgery Tubal Family History: Cerebrovascular accident (CVA) G8 MOTHER Diabetes mellitus G8 MOTHER G8 FATHER Family History Family history reviewed. Social History Denies the use of illicit drugs, alcohol, or tobacco use. Allergies: Coded Allergies: Amoxicillin (Verified Allergy, Severe, 03/10/24) Clavulanic Acid (Verified Allergy, Unknown, 03/10/24) Home Meds Active Scripts Albuterol Sulfate (Albuterol Sulfate Hfa) 108 Mcg/Act Aer, 108 MCG IN Q4HP PRN, #1 AER Prov:KALEE BENITEZ MD 03/09/24 Docusate Sodium (Colace) 100 Mg Cap, 1 CAP PO BID, #30 CAP Prov:ANGEL WHITEHEAD PAC 12/15/23 Ferrous Sulfate (FERROUS SULFATE) 325 Mg Tb, 1 TAB PO DAILY, #30 TAB 3 Refills Prov:ANGEL WHITEHEAD PAC 12/15/23 Meclizine HCl (Meclizine 25) 25 Mg Tab, 25 MG PO Q12HP PRN, #10 TAB Prov:ANGEL WHITEHEAD PAC 12/15/23 Reported Medications Loratadine (Claritin) 10 Mg Tab, 1 TAB PO DAILY, #30 TAB 5 Refills 02/06/25 Liraglutide (Victoza) 18 Mg/3 Ml Inj, 1.8 MG SUBCUT DAILY, #9 ML 3 Refills 02/06/25 Atorvastatin Calcium (ATORVASTATIN CALCIUM) 20 Mg Tab, 1 TAB PO HS, #30 TAB 5 Refills 02/06/25 Hydroxyzine Hcl (Hydroxyzine Hcl) 25 Mg Tab, 1 TAB PO BID, #60 TAB 02/06/25 Lisinopril (Lisinopril) 20 Mg Tab, 30 MG PO DAILY, TAB 02/06/25 Empagliflozin (Jardiance) 25 Mg Tab, 25 MG PO DAILY, TAB 02/06/25 Discontinued Scripts Azithromycin (Zithromax) 250 Mg Tab, 250 MG PO DAILY for 3 Days, #3 TAB Prov:RAINER ZACARIAS MD 03/13/24 Methylprednisolone (Medrol Dosepak) 4 Mg Marlo, 4 MG PO UD, #21 TAB UAD Prov:RAINER ZACARIAS MD 03/13/24 Ondansetron Odt 4MG Tab (ZOFRAN PO) 4 Mg Tb, 4 MG PO Q6HP PRN, #15 TAB ODT TAB-DISSOLVE IN MOUTH, THEN SWALLOW Prov:ANGEL WHITEHEAD PAC 12/15/23 Home Meds Home medications reviewed. Current Medications Current Medications Medications (Trade) Dose Ordered Sig/Yan Route PRN Reason Start Time Stop Time Status Last Admin Sodium Chloride (Saline Lock Ns) 10 ml Q8HR IV 02/06/25 14:00 Acetaminophen/ Hydrocodone Bitart ([place] 5/325MG Tab) 1 tab Q4HP PRN PO MODERATE PAIN (4-6 PAIN SCALE) 02/06/25 09:15 Ondansetron HCl (Zofran) 4 mg Q4HP PRN IV NAUSEA / VOMITING 02/06/25 09:15 UNV Docusate Sodium (Colace Capsule) 100 mg BIDPRN PRN PO FOR CONSTIPATION 02/06/25 09:15 Acetaminophen (Tylenol Tablet) 650 mg Q6HP PRN PO PAIN SCALE 1-3 OR TEMP>100.4 02/06/25 09:15 Nitroglycerin (Ntrostat Sublingual) 0.4 mg Q5MINP PRN SL FOR CHEST PAIN 02/06/25 09:15 Morphine Sulfate 2 mg Q30M PRN IV FOR CHEST PAIN 02/06/25 09:15 Ketorolac Tromethamine (Toradol Injection) 15 mg Q6HPRN PRN IV SEVERE PAIN (7-10 PAIN SCALE) 02/06/25 09:15 02/11/25 09:14 02/06/25 10:31 Albuterol (Ventolin Hfa) 108 mcg Q4HP PRN IN SHORTNESS OF BREATH 02/06/25 09:45 02/06/25 10:24 DC Ferrous Sulfate 325 mg DAILY PO 02/06/25 10:00 UNV Atorvastatin Calcium (Lipitor) 20 mg HS PO 02/06/25 22:00 UNV Lisinopril (Zestril Tablet) 30 mg DAILY PO 02/06/25 10:00 UNV Loratadine (Claritin Tablet) 10 mg DAILY PO 02/06/25 10:00 UNV Patient Own Medication 25 mg DAILY PO 02/06/25 10:00 UNV Patient Own Medication 1 tab BID PO 02/06/25 10:00 UNV Patient Own Medication 1.8 mg DAILY SUBCUT 02/06/25 10:00 UNV Albuterol (Ventolin Medneb) 2.5 mg Q4HPRN PRN NEB SHORTNESS OF BREATH 02/06/25 10:30 UNV Review of Systems Constitutional: No symptom reported Ears, Nose, & Throat: No symptom reported Eyes: No symptom reported Neurological: Dizziness, syncope Pulmonary/Respiratory: No symptom reported Cardiovascular: No symptom reported Gastrointestinal: No symptom reported Genitourinary: No symptom reported Musculoskeletal: Neck pain Skin: No symptom reported Psychiatric: No symptom reported Endocrine: No symptom reported Hemotologic/Lymphatic: No symptom reported Vital Signs Vital Signs Date Time Temp Pulse Resp B/P (MAP) Pulse Ox O2 Delivery O2 Flow Rate FiO2 02/06/25 10:34 97.6 71 16 124/45 93 0.0 97.6 02/06/25 07:50 Room Air* 21 Physical Exam General Appearance: Cooperative. Well developed. Obese. In no acute distress. Right frontal scalp hematoma Head Exam: Normal inspection Neck Exam: Normal inspection. Non-tender. Normal alignment Pulmonary/Respiratory: Chest non-tender. Clear bilateral breath sounds Cardiovascular/Chest: Regular rate and rhythm. S1, S2. Sinus rhythm with QTC at 517 ms. No murmurs. No JVD. Peripheral Pulses: 2+ Radial (R). 2+ Radial (L). 2+ Pedal (R). 2+ Pedal (L) Abdominal Exam: Normal bowel sounds. Soft. Nontender. No hepatospenomegaly. No masses Ankle Exam: Negative ankle edema Lower extremities: Negative lower extremity edema Neuro/Mental Status: A&O x4. Coherent Thoughts/Psych: Normal thought pattern. Appropriate mood and affect. Good judgement and insight Appearance: In no acute distress Skin Exam: Normal inspection. Normal color. Warm. Dry ENT: Right subconjunctival hemorrhage Labs/Diagnostic Data Labs Test 02/06/25 10:31 02/06/25 07:36 Range/Units Troponin I High Sensitivity 3 L </=34 ng/L White Blood Count 12.3 H 4.4-10.8 10^3/uL Red Blood Count 5.69 H 4.0-5.20 10^6/uL Hemoglobin 10.8 L 12.2-16.2 g/dL Hematocrit 35.7 L 36.0-46.0 % Mean Corpuscular Volume 62.8 L 80.0-100.0 fL Mean Corpuscular Hemoglobin 18.9 L 28.0-32.0 pg Mean Corpuscular Hemoglobin Concent 30.1 L 32.0-36.0 g/dL Red Cell Distribution Width 15.3 H 11.8-14.3 % Platelet Count 296 140-450 10^3/uL Mean Platelet Volume 9.0 6.9-10.8 fL Neutrophils (%) (Auto) 81.9 H 37.0-80.0 % Lymphocytes (%) (Auto) 11.5 10.0-50.0 % Monocytes (%) (Auto) 3.9 0.0-12.0 % Eosinophils (%) (Auto) 2.5 0.0-7.0 % Basophils (%) (Auto) 0.2 0.0-2.0 % Neutrophils # (Auto) 10.1 H 1.6-8.6 10 ^3/uL Lymphocytes # (Auto) 1.4 0.4-5.4 10 ^3/uL Monocytes # (Auto) 0.5 0-1.3 10 ^3/uL Eosinophils # (Auto) 0.3 0-0.8 10 ^3/uL Basophils # (Auto) 0 0-0.2 10 ^3/uL Nucleated Red Blood Cells 0.1 % Platelet Estimate Adequate Hypochromasia (manual) Marked Microcytosis Marked Target Cells Few Tear Drop Cells Few Ovalocytes Few Sodium Level 139 136-145 mmol/L Potassium Level 3.8 3.5-5.1 mmol/L Chloride Level 104 98-107 mmol/L Carbon Dioxide Level 28 20-31 mmol/L Anion Gap 7 5-15 Blood Urea Nitrogen 24 H 9-23 mg/dL Creatinine 0.82 0.550-1.02 mg/dL Glomerular Filtration Rate Calc 76 >90 mL/min BUN/Creatinine Ratio 29.3 H 10.0-20.0 Serum Glucose 161 H 74-106 mg/dL Hemoglobin A1c 7.0 H <5.7 % A1C Calcium Level 9.5 8.7-10.4 mg/dL Thyroid Stimulating Hormone (TSH) 0.60 0.55-4.78 uIU/mL Assessment Syncope and collapse Rule out structural heart disease Rule out cardiac arrhythmias Rule out orthostatic hypotension Hypertension Dyslipidemia Insulin-dependent diabetes mellitus Right breast cancer Morbid obesity Plan/Recommendation (Dr. Lindsey) Case discussed in full detail and patient examined by Dr. Lindsey. The patient will undergo a transthoracic echocardiogram to evaluate cardiac function as well as a carotid duplex to rule out stenosis. In the meantime, complete orthostatic vital signs and monitor ECG changes closely. Further orders per clinical course. Thank you for allowing us to participate in this patient's care. Please call if you have any questions or concerns. This medical document was created using an electronic medical record system with voice recognition software and computerized dictation system. Although this document has been carefully reviewed, there might still be some phonetic and typographical errors. Occasional wrong-word or ``sound-alike substitutions may have occurred due to the inherent limitations of voice recognition software. These areas are purely typographical due to imperfections of the software programs and do not reflect any compromise in the patient's medical care. Please read the chart carefully and recognize, using context, where these substitutions have occurred. Plan discussed with: Patient, Other NYHA Physical activity limitations: NA Date of Service: Feb 06, 2025 Billing Provider: RYAN PITTS LUGGAGE ATTENDANT Cardiology Common Codes: [id number] INP/OBS CARE (High) RACHID LINDSEY MD 02/08/25 1639: Date Seen: Feb 06, 2025 Family History: Cerebrovascular accident (CVA) G8 MOTHER Diabetes mellitus G8 MOTHER G8 FATHER Allergies: Coded Allergies: Amoxicillin (Verified Allergy, Severe, 03/10/24) Clavulanic Acid (Verified Allergy, Unknown, 03/10/24) Home Meds Active Scripts Albuterol Sulfate (Albuterol Sulfate Hfa) 108 Mcg/Act Aer, 108 MCG IN Q4HP PRN, #1 AER Prov:KALEE BENITEZ MD 03/09/24 Docusate Sodium (Colace) 100 Mg Cap, 1 CAP PO BID, #30 CAP Prov:ANGEL WHITEHEAD PAC 12/15/23 Ferrous Sulfate (FERROUS SULFATE) 325 Mg Tb, 1 TAB PO DAILY, #30 TAB 3 Refills Prov:ANGEL WHITEHEAD PAC 12/15/23 Meclizine HCl (Meclizine 25) 25 Mg Tab, 25 MG PO Q12HP PRN, #10 TAB Prov:ANGEL WHITEHEAD PAC 12/15/23 Reported Medications Loratadine (Claritin) 10 Mg Tab, 1 TAB PO DAILY, #30 TAB 5 Refills 02/06/25 Liraglutide (Victoza) 18 Mg/3 Ml Inj, 1.8 MG SUBCUT DAILY, #9 ML 3 Refills 02/06/25 Atorvastatin Calcium (ATORVASTATIN CALCIUM) 20 Mg Tab, 1 TAB PO HS, #30 TAB 5 Refills 02/06/25 Hydroxyzine Hcl (Hydroxyzine Hcl) 25 Mg Tab, 1 TAB PO BID, #60 TAB 02/06/25 Lisinopril (Lisinopril) 20 Mg Tab, 30 MG PO DAILY, TAB 02/06/25 Empagliflozin (Jardiance) 25 Mg Tab, 25 MG PO DAILY, TAB 02/06/25 Discontinued Scripts Azithromycin (Zithromax) 250 Mg Tab, 250 MG PO DAILY for 3 Days, #3 TAB Prov:RAINER ZACARIAS MD 03/13/24 Methylprednisolone (Medrol Dosepak) 4 Mg Marlo, 4 MG PO UD, #21 TAB UAD Prov:RAINER ZACARIAS MD 03/13/24 Ondansetron Odt 4MG Tab (ZOFRAN PO) 4 Mg Tb, 4 MG PO Q6HP PRN, #15 TAB ODT TAB-DISSOLVE IN MOUTH, THEN SWALLOW Prov:ANGEL WHITEHEAD PAC 12/15/23 Plan/Recommendation Patient seen at bedside with family, 69 year-old female presenting with significant syncope, first episode. Will need to rule out carotid pathology, including dissection, given her headache, structural heart, disease, arrhythmias. Further recommendations per clinical progression, and testing results. RYAN PITTS Feb 06, 2025 11:31 RACHID LINDSEY MD Feb 08, 2025 16:39
[2025-02-06] MEDS: LORATADINE 10 MG TAB PO SCH (11:49)
[2025-02-06] MEDS: LISINOPRIL 20 MG TAB PO SCH (11:53)
[2025-02-06] MEDS: FERROUS SULFATE 325mg EC TAB PO SCH (11:54)
--- NOTE | 2025-02-06 13:03 | DVH ---
PROCEDURE: US CAROTID DUPLX W COLOR DOP 02/06/2025 09:30 AM INDICATION: Syncope and collapse COMPARISON: None TECHNIQUE: Real-time grayscale and color Doppler images of the neck arteries were obtained with spect ral analysis performed. FINDINGS: RIGHT: Moderate calcified plaque formation seen in the carotid bulb. Normal spectral waveforms are seen. ICA peak systolic velocity: 140 cm/s ICA end-diastolic velocity: 51 cm/s ICA/CCA ratios: 1.14 LEFT: Mild plaque formation noted at the carotid bulb. Normal spectral waveforms are seen. ICA peak systolic velocity: 109 cm/s ICA end-diastolic velocity: 35 cm/s ICA/CCA ratios: 1.14 VERTEBRAL ARTERIES: Normal antegrade flow is seen bilaterally. Normal spectral waveforms. IMPRESSION: 1. Moderate calcified plaque formation carotid bulb with approximately 50% stenosis. Less than 50% st enosis at the left carotid bulb noted. Reference: Radiology 2003; 229:[id number] Normal ICA PSV is <125 cm/sec and no plaque or intimal thickening is visible sonographically additional criteria include ICA/CCA PSV ratio <2.0 and ICA EDV <40 cm/sec <50% ICA stenosis ICA PSV is <125 cm/sec and plaque or intimal thickening is visible sonographically additional criteria include ICA/CCA PSV ratio <2.0 and ICA EDV <40 cm/sec 50-69% ICA stenosis ICA PSV is 125-230 cm/sec and plaque is visible sonographically additional criteria include ICA/CCA PSV ratio of 2.0-4.0 and ICA EDV of 40-100 cm/sec 70% ICA stenosis but less than near occlusion ICA PSV is >230 cm/sec and visible plaque and luminal narrowing are seen at rosario-scale and color Dopp ler ultrasound (the higher the Doppler parameters lie above the threshold of 230 cm/sec, the greater the likelihood of severe disease) additional criteria include ICA/CCA PSV ratio >4 and ICA EDV >100 cm/sec
[2025-02-06] MEDS: SODIUM CHLOR 0.9% PF (SALINE LOCK) 10ML VIAL/SYR IV SCH (14:07)
[2025-02-06] MEDS: ONDANSETRON HCL 4 MG/2 ML VIAL IV PRN (19:17)
--- NOTE | 2025-02-06 20:00 | DVHINCON2 ---
Date of service: Feb 06, [address] Johnson Reason for Consultation Syncopal episode History of Present Illness Mr. Cheng is a right-handed female with a history of hypertension, diabetes, dyslipidemia, breast cancer, brain tumor, asthma, she was brought to the [facility] on 02/06/25 with a chief complaint of passing out. 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 After using bathroom, when she was standing up, she had dizziness/lightheaded, and she fell down onto the floor, she may have loss of consciousness briefly, but on the floor, she had dizziness/intermittent spinning sensation lasting for 2 minutes triggered by any head movement, she was had headache, otherwise she denies chest pain, code feeling, hot feeling, increased sweating, focal weakness numbness. She was never had similar problems previously Previous evaluation: Unremarkable CT head WBC/HB/PLT/MCV, 02/06/2025: 12.3/10.8/296/62.8 HGB A1c, 02/07/2020 5:7 TSH, 02/06/25: 0.6 Carotid Doppler, 02/06/2025: Moderate calcified plaque formation carotid bulb with approximately 50% stenosis. Less than 50% stenosis at the left carotid bulb noted CT head, 02/06/2025: 1. No CT evidence of acute intracranial abnormality. 2. Moderate right frontal scalp hematoma. 3. Stable appearing postsurgical changes and areas of encephalomalacia as described above CT C-spine, 02/06/2025: No evidence of acute cervical spine fracture or traumatic malalignment Past Medical History Hypertension, diabetes, dyslipidemia, breast cancer, brain tumor, asthma Past Surgical History Brain tumor status post craniotomy (2022), breast cancer removal Family History: G8 MOTHER Diabetes mellitus Cerebrovascular accident (CVA) G8 FATHER Diabetes mellitus Family History Diabetes, coronary artery disease, heart attack, stroke, cancer Social History She smoked in her teenager, but no history of alcohol or recreational substance abuse Allergies: Coded Allergies: Amoxicillin (Verified Allergy, Severe, 03/10/24) Clavulanic Acid (Verified Allergy, Unknown, 03/10/24) Home Meds Active Scripts Albuterol Sulfate (Albuterol Sulfate Hfa) 108 Mcg/Act Aer, 108 MCG IN Q4HP PRN, #1 AER Prov:KALEE BENITEZ MD 03/09/24 Docusate Sodium (Colace) 100 Mg Cap, 1 CAP PO BID, #30 CAP Prov:ANGEL WHITEHEAD PAC 12/15/23 Ferrous Sulfate (FERROUS SULFATE) 325 Mg Tb, 1 TAB PO DAILY, #30 TAB 3 Refills Prov:ANGEL WHITEHEAD PAC 12/15/23 Meclizine HCl (Meclizine 25) 25 Mg Tab, 25 MG PO Q12HP PRN, #10 TAB Prov:ANGEL WHITEHEAD PAC 12/15/23 Reported Medications Loratadine (Claritin) 10 Mg Tab, 1 TAB PO DAILY, #30 TAB 5 Refills 02/06/25 Liraglutide (Victoza) 18 Mg/3 Ml Inj, 1.8 MG SUBCUT DAILY, #9 ML 3 Refills 02/06/25 Atorvastatin Calcium (ATORVASTATIN CALCIUM) 20 Mg Tab, 1 TAB PO HS, #30 TAB 5 Refills 02/06/25 Hydroxyzine Hcl (Hydroxyzine Hcl) 25 Mg Tab, 1 TAB PO BID, #60 TAB 02/06/25 Lisinopril (Lisinopril) 20 Mg Tab, 30 MG PO DAILY, TAB 02/06/25 Empagliflozin (Jardiance) 25 Mg Tab, 25 MG PO DAILY, TAB 02/06/25 Discontinued Scripts Azithromycin (Zithromax) 250 Mg Tab, 250 MG PO DAILY for 3 Days, #3 TAB Prov:RAINER ZACARIAS MD 03/13/24 Methylprednisolone (Medrol Dosepak) 4 Mg Marlo, 4 MG PO UD, #21 TAB UAD Prov:RAINER ZACARIAS MD 03/13/24 Ondansetron Odt 4MG Tab (ZOFRAN PO) 4 Mg Tb, 4 MG PO Q6HP PRN, #15 TAB ODT TAB-DISSOLVE IN MOUTH, THEN SWALLOW Prov:ANGEL WHITEHEAD [facility] 12/15/23 Current Medications Current Medications Medications (Trade) Dose Ordered Sig/Yan Route PRN Reason Start Time Stop Time Status Last Admin Sodium Chloride (Saline Lock Ns) 10 ml Q8HR IV 02/06/25 14:00 02/06/25 14:07 Acetaminophen/ Hydrocodone Bitart (Byron 5/325MG Tab) 1 tab Q4HP PRN PO MODERATE PAIN (4-6 PAIN SCALE) 02/06/25 09:15 Ondansetron HCl (Zofran) 4 mg Q4HP PRN IV NAUSEA / VOMITING 02/06/25 09:15 02/06/25 19:17 Docusate Sodium (Colace Capsule) 100 mg BIDPRN PRN PO FOR CONSTIPATION 02/06/25 09:15 Acetaminophen (Tylenol Tablet) 650 mg Q6HP PRN PO PAIN SCALE 1-3 OR TEMP>100.4 02/06/25 09:15 Nitroglycerin (Ntrostat Sublingual) 0.4 mg Q5MINP PRN SL FOR CHEST PAIN 02/06/25 09:15 Morphine Sulfate 2 mg Q30M PRN IV FOR CHEST PAIN 02/06/25 09:15 Ketorolac Tromethamine (Toradol Injection) 15 mg Q6HPRN PRN IV SEVERE PAIN (7-10 PAIN SCALE) 02/06/25 09:15 02/11/25 09:14 02/06/25 10:31 Albuterol (Ventolin Hfa) 108 mcg Q4HP PRN IN SHORTNESS OF BREATH 02/06/25 09:45 02/06/25 10:24 DC Ferrous Sulfate 325 mg DAILY PO 02/06/25 10:00 02/06/25 11:54 Atorvastatin Calcium (Lipitor) 20 mg HS PO 02/06/25 22:00 Lisinopril (Zestril Tablet) 30 mg DAILY PO 02/06/25 10:00 02/06/25 11:53 Loratadine (Claritin Tablet) 10 mg DAILY PO 02/06/25 10:00 02/06/25 11:49 Patient Own Medication 25 mg DAILY PO 02/06/25 10:00 02/06/25 11:34 DC Hydroxyzine Pamoate (Vistaril Oral) 25 mg BID PO 02/06/25 22:00 Patient Own Medication 1.8 mg DAILY SC 02/06/25 10:00 Albuterol (Ventolin Medneb) 2.5 mg Q4HPRN PRN NEB SHORTNESS OF BREATH 02/06/25 10:30 Empaglifozin (Jardiance) 25 mg DAILY PO 02/06/25 10:00 02/06/25 10:00 Review of Systems As above, the other systems are negative Vital Signs Vital Signs Date Time Temp Pulse Resp B/P (MAP) Pulse Ox O2 Delivery O2 Flow Rate FiO2 02/06/25 18:06 98.4 70 16 117/50 (72) 100 98.4 02/06/25 18:00 Nasal Cannula* 1 24 Physical Exam GENERAL EXAM: General: the patient is well developed and nourished. No acute distress. HEENT: Normocephalic, neck is supple, no carotid bruits. No mass. RESPIRATORY: Normal respiratory effort with symmetrical lung expansion. Lungs clear to auscultation. CARDIOVASCULAR: Regular rate and rhythm with no murmurs. S1, S2. NEUROLOGICAL: MENTAL STATUS: Awake and alert. Oriented to person, place, time and general circumstances. Able to give personal history. SPEECH, LANGUAGE, HIGHER CORTICAL FUNCTION: no aphasia or dysathria. CRANIAL NERVES: #2: Intact visual loza to confrontation. The optic discs were sharp. #3,4,6: Pupils are equal, round and reactive. EOMs full and conjugate. No nystagmus. #5: Facial sensation intact in all three divisions bilaterally. Mandibular strength intact. #7: Facial muscles symmetrical and strength intact. #8: Hearing grossly normal to voice. #9,10: Uvula and soft palate rise in the midline. Swallow and voice are normal. #11: Trapezius and sternomastoid strength intact bilaterally. #12: Tongue midline. No fasciculations or atrophy. SENSATION: Sensation to touch and pinprick is normal. MOTOR: Normal tone in the upper and lower extremity. Normal muscle bulk. No fasciculations. No abnormal movements or posturing. Muscle strength of the major groups in the upper extremities is 5/5. Muscle strength of the major groups in the lower extremities is 5/5. REFLEXES: Deep tendon reflexes are symmetrical. No pathological reflexes. CEREBELLAR/COORDINATION: Finger to nose and heel to charles are normal bilaterally. GAIT/STATION: deferred. Labs/Diagnostic Data Labs Test 02/06/25 15:31 02/06/25 10:31 02/06/25 07:36 Range/Units POC Glucose 118 H 70-106 mg/dl Troponin I High Sensitivity 3 L </=34 ng/L White Blood Count 12.3 H 4.4-10.8 10^3/uL Red Blood Count 5.69 H 4.0-5.20 10^6/uL Hemoglobin 10.8 L 12.2-16.2 g/dL Hematocrit 35.7 L 36.0-46.0 % Mean Corpuscular Volume 62.8 L 80.0-100.0 fL Mean Corpuscular Hemoglobin 18.9 L 28.0-32.0 pg Mean Corpuscular Hemoglobin Concent 30.1 L 32.0-36.0 g/dL Red Cell Distribution Width 15.3 H 11.8-14.3 % Platelet Count 296 140-450 10^3/uL Mean Platelet Volume 9.0 6.9-10.8 fL Neutrophils (%) (Auto) 81.9 H 37.0-80.0 % Lymphocytes (%) (Auto) 11.5 10.0-50.0 % Monocytes (%) (Auto) 3.9 0.0-12.0 % Eosinophils (%) (Auto) 2.5 0.0-7.0 % Basophils (%) (Auto) 0.2 0.0-2.0 % Neutrophils # (Auto) 10.1 H 1.6-8.6 10 ^3/uL Lymphocytes # (Auto) 1.4 0.4-5.4 10 ^3/uL Monocytes # (Auto) 0.5 0-1.3 10 ^3/uL Eosinophils # (Auto) 0.3 0-0.8 10 ^3/uL Basophils # (Auto) 0 0-0.2 10 ^3/uL Nucleated Red Blood Cells 0.1 % Platelet Estimate Adequate Hypochromasia (manual) Marked Microcytosis Marked Target Cells Few Tear Drop Cells Few Ovalocytes Few Sodium Level 139 136-145 mmol/L Potassium Level 3.8 3.5-5.1 mmol/L Chloride Level 104 98-107 mmol/L Carbon Dioxide Level 28 20-31 mmol/L Anion Gap 7 5-15 Blood Urea Nitrogen 24 H 9-23 mg/dL Creatinine 0.82 0.550-1.02 mg/dL Glomerular Filtration Rate Calc 76 >90 mL/min BUN/Creatinine Ratio 29.3 H 10.0-20.0 Serum Glucose 161 H 74-106 mg/dL Hemoglobin A1c 7.0 H <5.7 % A1C Calcium Level 9.5 8.7-10.4 mg/dL Thyroid Stimulating Hormone (TSH) 0.60 0.55-4.78 uIU/mL Assessment Passing out, she likely had syncopal event in the morning on 02/06/2025 Dizziness, likely she has benign paroxysmal positional vertigo, but need to rule out other acute abnormality Brain tumor status post craniotomy Plan/Recommendation Monitoring Supportive treatment Telemetry EEG MR brain scan Syncopal precautions discussed More recommendation per clinical course Prognosis: Poor This medical document was created using an electronic medical record system with [employer] dictation system. Although this document has been carefully reviewed, there may still be some phonetic and typographical errors. These areas are purely typographical due to imperfections of the software programs, and do not reflect any compromise in the patient's medical care. Plan discussed with: Patient, Other HENOK DIAZ MD Feb 06, 2025 20:00
[2025-02-06] MEDS ORDERED: LORazepam 2MG/ML-1ML VIAL IV PRN (20:45)
[2025-02-06] MEDS: ATORVASTATIN 20 MG TAB PO SCH (21:06)
[2025-02-06] MEDS: hydrOXYzine 25 MG TAB or CAP PO SCH (21:06)
[2025-02-07] VITALS (10 sets, daily range): BP systolic 101–143; BP diastolic 31–63; PULSE 67–84; RESP 16–18; TEMP 98–99; O2SAT 90–96
[2025-02-07 05:18] LABS: Urine Bacteria FEW /hpf (None Seen); Urine Blood Negative /uL (Negative); Urine Budding Yeast OCCASIONAL /hpf (None Seen); Urine Clarity Clear (Clear); Urine Color Light-Yellow (Yellow); Urine Protein, UAD Negative (Negative); Urine Specific Gravity 1.015 (1.001-1.035); Urine Squamous Epithelial Cell FEW /hpf (<5); Urine Urobilinogen Normal (Negative); Urine WBC 36 /HPF (0-5); Urine pH 5.5 (5.0-9.0)
[2025-02-07 05:20] LABS: Opiate Scree,Urine Neg (NEGATIVE)
[2025-02-07 05:29] LABS: Amphetamine Screen, Urine Neg (NEGATIVE); Barbiturate Scree,Urine Neg (NEGATIVE); Benzodiazephine Screen, Urine Neg (NEGATIVE); Cannabinoid Screen, Urine Neg (NEGATIVE); Cocaine Screen, Urine Neg (NEGATIVE); Phencyclidine Screen, Urine Neg (NEGATIVE)
[2025-02-07 06:47] LABS: Basophils # (auto) 0 10 ^3/uL (0-0.2); Eosinophils # (auto) 0.3 10 ^3/uL (0-0.8); Hemoglobin 10.5 g/dL (12.2-16.2); Lymphocytes % (auto) 14.9 % (10.0-50.0); Monocytes # (auto) 0.5 10 ^3/uL (0-1.3); Nucleated Red Blood Cells % 0.1 %
[2025-02-07 06:51] LABS: Basophils % (auto) 0.2 % (0.0-2.0); Hematocrit 34.2 % (36.0-46.0); Lymphocytes # (auto) 1.5 10 ^3/uL (0.4-5.4); Mean Corpuscular Hemoglobin 19.4 pg (28.0-32.0); Mean Corpuscular Hgb Conc. 30.8 g/dL (32.0-36.0); Mean Corpuscular Volume 62.9 fL (80.0-100.0); Monocytes % (auto) 4.8 % (0.0-12.0); Neutrophils % (auto) 77.1 % (37.0-80.0); Platelet Count (auto) 302 10^3/uL (140-450); Red Blood Cells 5.43 10^6/uL (4.0-5.20); Red Cell Distribution Width 15.6 % (11.8-14.3); White Blood Cell 10.4 10^3/uL (4.4-10.8)
[2025-02-07 07:06] LABS: Alanine Aminotransferase 16 U/L (7-40); Alkaline Phosphatase 111 U/L (46-116); Anion Gap 8 (5-15); Calcium 9.6 mg/dL (8.7-10.4); Carbon Dioxide 28 mmol/L (20-31); Chloride 105 mmol/L (98-107); Potassium 4.3 mmol/L (3.5-5.1); Sodium 141 mmol/L (136-145)
[2025-02-07 07:07] LABS: Albumin 4.1 g/dL (3.2-4.8); Aspartate Aminotransferase 15 U/L (13-40); BUN/Creatinine Ratio 26.8 (10.0-20.0); Blood Urea Nitrogen 22 mg/dL (9-23)
[2025-02-07 07:08] LABS: Total Protein 6.5 g/dL (5.7-8.2)
[2025-02-07 07:09] LABS: Bilirubin, Total 0.7 mg/dL (0.2-1.0); Glucose 136 mg/dL (74-106)
[2025-02-07] MEDS: HYDROcodone-ACET 5/325MG TAB PO PRN (09:07)
--- NOTE | 2025-02-07 10:38 | DVH ---
PROCEDURE: MRI BRAIN HEAD WO CONTRAST INDICATION: Passing out EXAM DATE: 02/07/2025 09:43 AM COMPARISON: Head CT 12/15/2023 TECHNIQUE: MRI of the brain without intravenous contrast. FINDINGS: Diffusion weighted images of the brain demonstrate no evidence of acute infarction. There is no evidence of acute intracranial hemorrhage, extra-axial collection, midline shift, herniat ion or hydrocephalus. Postsurgical changes left frontal temporal region. There is underlying cystic encephalomalacia in the left frontal and anterior temporal lobe with surrounding gliosis. There is suggestion of a mass in the left subfrontal region measuring up to 31 mm. The ventricles, sulci and cisterns appear age appropriate. There are no signal abnormalities on the susceptibility weighted sequences. Left supraclinoid internal carotid artery and MCA are not well seen. The visualized paranasal sinuses and mastoid air cells are clear. There is a right frontal scalp IMPRESSION: 1. Right frontal scalp hematoma. No evidence of acute infarction, intracranial hemorrhage, or hydroc ephalus. Postsurgical changes left frontotemporal region with underlying cystic encephalomalacia and surrounding gliosis in the left frontal and anterior temporal lobes. Suggestion of a mass in the lef t subfrontal region measuring up to 31 mm. This is likely unchanged dating back to head CT 12/15/2023. Could represent a meningioma. Recommend further evaluation with MRI of the brain with contrast. Left supraclinoid ICA and left MCA flow voids are not well seen. Recommend further evaluation with MRA of the brain. HS:Y
--- NOTE | 2025-02-07 11:49 | DVHPN2 ---
Reviewed: Care Plan, H&P, Labs, Medications, Previous Orders, Radiology Changes from previous H/P or p: No Changes Eyes: No Pain, No Vision change, No Conjunctivae inflammation, No Eyelid inflammation, No Other, No Redness ENT: No Ear pain, No Ear discharge, No Nose pain, No Nose discharge, No Nose congestion, No Mouth pain, No Mouth swelling, No Throat pain, No Throat swelling, No Other Cardiovascular: No Chest Pain, No Palpitations, No Orthopnea, No Paroxysmal Noc. Dyspnea, No Edema, No Lt Headedness, No Other Respiratory: No Cough, No Dry, No Shortness of breath, No SOB with excertion, No Wheezing, No Hemoptysis, No Pleuritic Pain, No Sputum, No Other Gastrointestinal: No Nausea, No Vomiting, No Abdominal Pain, No Diarrhea, No Constipation, No Melena, No Hematochezia, No Other Genitourinary: No Dysuria, No Frequency, No Incontinence, No Hematuria, No Retention, No Other Musculoskeletal: No other, No neck pain, No shoulder pain, No arm pain, No back pain, No hand pain, No leg pain, No foot pain Skin: No Rash, No Lesions, No Jaundice, No Bruising, No Other Objective Vitals Vital Signs Date Time Temp Pulse Resp B/P (MAP) Pulse Ox O2 Delivery O2 Flow Rate FiO2 02/07/25 10:50 103/44 02/07/25 09:15 99.0 78 16 90 99.0 02/06/25 21:49 Nasal Cannula* 1 24 Intake/Output Intake and Output 02/07/25 07:00 Intake Total 500 ml Output Total 500 ml Balance 0 ml Intake Oral 500 ml Output Urine Total 500 ml # Bowel Movements 2 Medications Current Medications Medications Dose Ordered Sig/Yan Route Start Time Stop Time Status Last Admin Dose Admin Sodium Chloride 10 ml Q8HR IV 02/06/25 14:00 02/07/25 06:00 10 ML Acetaminophen/ Hydrocodone Bitart 1 tab Q4HP PRN PO 02/06/25 09:15 02/07/25 09:07 1 TAB Ondansetron HCl 4 mg Q4HP PRN IV 02/06/25 09:15 02/06/25 19:17 4 MG Docusate Sodium 100 mg BIDPRN PRN PO 02/06/25 09:15 Acetaminophen 650 mg Q6HP PRN PO 02/06/25 09:15 Nitroglycerin 0.4 mg Q5MINP PRN SL 02/06/25 09:15 Morphine Sulfate 2 mg Q30M PRN IV 02/06/25 09:15 Ketorolac Tromethamine 15 mg Q6HPRN PRN IV 02/06/25 09:15 02/11/25 09:14 02/06/25 10:31 15 MG Ferrous Sulfate 325 mg DAILY PO 02/06/25 10:00 02/07/25 10:49 325 MG Atorvastatin Calcium 20 mg HS PO 02/06/25 22:00 02/06/25 21:06 20 MG Lisinopril 30 mg DAILY PO 02/06/25 10:00 02/07/25 10:50 30 MG Loratadine 10 mg DAILY PO 02/06/25 10:00 02/07/25 10:50 10 MG Hydroxyzine Pamoate 25 mg BID PO 02/06/25 22:00 02/07/25 10:51 25 MG Patient Own Medication 1.8 mg DAILY SC 02/06/25 10:00 Albuterol 2.5 mg Q4HPRN PRN NEB 02/06/25 10:30 Cancel Empaglifozin 25 mg DAILY PO 02/06/25 10:00 02/07/25 10:51 25 MG Lorazepam 1 mg ONCE PRN IV 02/06/25 20:45 Laboratory Results Laboratory Tests 02/07/25 06:16 Chemistry Test 02/07/25 06:16 Albumin 4.1 g/dL (3.2-4.8) Calcium Level 9.6 mg/dL (8.7-10.4) Total Protein 6.5 g/dL (5.7-8.2) LFT Test 02/07/25 06:16 Alanine Aminotransferase (ALT) 16 U/L (7-40) Alkaline Phosphatase 111 U/L (46-116) Aspartate Amino Transferase (AST) 15 U/L (13-40) Total Bilirubin 0.7 mg/dL (0.2-1.0) Urinalysis Test 02/07/25 04:30 Urine Color Light-yellow (Yellow) Urine Clarity Clear (Clear) Urine pH 5.5 (5.0-9.0) Urine Specific [place] 1.015 (1.001-1.035) Urine Protein Negative (Negative) Urine Ketones Negative (Negative) Urine Blood Negative /uL (Negative) Urine Nitrite Negative (Negative) Urine Bilirubin Negative (Negative) Urine Urobilinogen Normal mg/dL (Negative) Urine Leukocyte Esterase 3+ /uL (Negative) Urine RBC 1 /hpf (0 - 4) Urine Microscopic WBC 36 /HPF (0-5) H Urine Squamous Epithelial Cells Few /hpf (<5) Urine Bacteria Few /hpf (None Seen) H Urine Yeast (Budding) Occasional /hpf (None Urine Glucose 4+ mg/dL (Normal) H Labs and/or images reviewed: Labs reviewed by me, Image(s) reviewed by me Assessment/Plan Assessment/Plan Syncope and collapse cardiology and neurology consult appreciated Sepsis Secondary to urinary tract infection: Blood cultures urine cultures Rocephin Rule out structural heart disease Rule out cardiac arrhythmias Rule out orthostatic hypotension Hypertension Dyslipidemia History of Brain tumor status post craniotomy History of right breast cancer Insulin-dependent diabetes mellitus Right breast cancer Morbid obesity Time Spent 65 minutes Patient is full code Advanced care planning time 20 minutes Echocardiogram pending Carotid ultrasound 50 percent stenosis bilateral carotid bulbs MRI brain shows previous surgical changes, no recent acute changes Plan discussed with: Patient My Orders Orders - MEREDITH HENRY MD Procedure Category Date Status Time Blood Culture ELUA 02/07/25 Transmitted 11:41 Urine Bacterial EULA 02/07/25 Transmitted Culture 11:41 Date of Service: Feb 07, 2025 Billing Provider: MEREDITH HENRY MD Common Visit Codes: [id number] CARE 30-74 MIN MEREDITH HENRY MD Feb 07, 2025 11:48
[2025-02-07] MEDS ORDERED: levoFLOXacin 500MG 100 ML IV ONE (12:00)
--- NOTE | 2025-02-07 17:05 | DVHPN2 ---
Progress Note - Dictate Date Seen: Feb 07, 2025 Medical Necessity Reason Pt with a Central, PICC or Fol: No Subjective Mr. Cheng is a right-handed female with a history of hypertension, diabetes, dyslipidemia, breast cancer, brain tumor, asthma, she was brought to the [facility] on 02/06/25 with a chief complaint of passing out. I have seen and examined the patient, I have talked to her nurse, she was doing better today, but still complained of pain in the neck especially when she moves the head. She noticed bending head were triggered spinning sensation She almost had fall when she was having a spinning sensation earlier today when she was off bed Syncope Onset: 02/06/2025 Possible cause of condition: Unknown Symptoms: dredgemaster on 02/06/2025, she had dizziness/lightheadedness when she was on the way to the bathroom. After using bathroom, when she was standing up, she had dizziness/lightheaded, and she fell down onto the floor, she may have loss of consciousness briefly, but on the floor, she had dizziness/intermittent spinning sensation lasting for 2 minutes triggered by any head movement, she was had headache, otherwise she denies chest pain, code feeling, hot feeling, increased sweating, focal weakness numbness. She was never had similar problems previously Previous evaluation: CT head, 02/06/2025: Status post craniotomy MRI head, 02/07/2025: Status post craniotomy. Stable left mass lesion, likely meningioma WBC/HB/PLT/MCV, 02/06/2025: 12.3/10.8/296/62.8 HGB A1c, 02/07/2020 5:7 TSH, 02/06/25: 0.6 Carotid Doppler, 02/06/2025: Moderate calcified plaque formation carotid bulb with approximately 50% stenosis. Less than 50% stenosis at the left carotid bulb noted CT head, 02/06/2025: 1. No CT evidence of acute intracranial abnormality. 2. Moderate right frontal scalp hematoma. 3. Stable appearing postsurgical changes and areas of encephalomalacia as described above CT C-spine, 02/06/2025: No evidence of acute cervical spine fracture or traumatic malalignment MRI head, 02/07/2025: Right frontal scalp hematoma. No evidence of acute infarction, intracranial hemorrhage, or hydrocephalus. Postsurgical changes left frontotemporal region with underlying cystic encephalomalacia and surrounding gliosis in the left frontal and anterior temporal lobes. Suggestion of a mass in the left subfrontal region measuring up to 31 mm. This is likely unchanged dating back to head CT 12/15/2023. Could represent a meningioma. Recommend further evaluation with MRI of the brain with contrast. Left supraclinoid ICA and left MCA flow voids are not well seen. Recommend further evaluation with MRA of the brain vital signs Vital Sign Date Time Temp Pulse Resp B/P (MAP) Pulse Ox O2 Delivery O2 Flow Rate FiO2 02/07/25 15:36 107/50 (69) 143/63 (89) 132/63 (86) 02/07/25 12:40 98.0 71 16 95 98.0 02/06/25 21:49 Nasal Cannula* 1 24 Total Intake and Output 02/06/25 02/06/25 02/07/25 15:00 23:00 07:00 Intake Total 500 ml Output Total 500 ml Balance 0 ml medications Current Medications Medications Dose Ordered Sig/Yan Route Start Time Stop Time Status Last Admin Dose Admin Sodium Chloride 10 ml Q8HR IV 02/06/25 14:00 02/07/25 14:30 10 ML Acetaminophen/ Hydrocodone Bitart 1 tab Q4HP PRN PO 02/06/25 09:15 02/07/25 15:21 1 TAB Ondansetron HCl 4 mg Q4HP PRN IV 02/06/25 09:15 02/06/25 19:17 4 MG Docusate Sodium 100 mg BIDPRN PRN PO 02/06/25 09:15 Acetaminophen 650 mg Q6HP PRN PO 02/06/25 09:15 Nitroglycerin 0.4 mg Q5MINP PRN SL 02/06/25 09:15 Morphine Sulfate 2 mg Q30M PRN IV 02/06/25 09:15 Ketorolac Tromethamine 15 mg Q6HPRN PRN IV 02/06/25 09:15 02/11/25 09:14 02/06/25 10:31 15 MG Ferrous Sulfate 325 mg DAILY PO 02/06/25 10:00 02/07/25 10:49 325 MG Atorvastatin Calcium 20 mg HS PO 02/06/25 22:00 02/06/25 21:06 20 MG Lisinopril 30 mg DAILY PO 02/06/25 10:00 02/07/25 10:50 30 MG Loratadine 10 mg DAILY PO 02/06/25 10:00 02/07/25 10:50 10 MG Hydroxyzine Pamoate 25 mg BID PO 02/06/25 22:00 02/07/25 10:51 25 MG Patient Own Medication 1.8 mg DAILY SC 02/06/25 10:00 Albuterol 2.5 mg Q4HPRN PRN NEB 02/06/25 10:30 Cancel Empaglifozin 25 mg DAILY PO 02/06/25 10:00 02/07/25 10:51 25 MG Lorazepam 1 mg ONCE PRN IV 02/06/25 20:45 Ceftriaxone Sodium 50 ml @ 100 mls/hr DAILY@09 IV 02/08/25 09:00 objective General: the patient is well developed and nourished. No acute distress. MENTAL STATUS: Awake and alert. Oriented to person, place, time and general circumstances. Able to give personal history. SPEECH, LANGUAGE, HIGHER CORTICAL FUNCTION: no aphasia or dysathria. CRANIAL NERVES: Pupils are equal, round and reactive. EOMs full and conjugate. No nystagmus. Facial sensation intact in all three divisions bilaterally. Mandibular strength intact. Facial muscles symmetrical and strength intact. SENSATION: Sensation to touch and pinprick is normal. MOTOR: Normal tone in the upper and lower extremity. Normal muscle bulk. No fasciculations. No abnormal movements or posturing. Muscle strength of the major groups in the extremities is 5/5. REFLEXES: Deep tendon reflexes are symmetrical. No pathological reflexes. CEREBELLAR/COORDINATION: Finger to nose and heel to charles are normal bilaterally. GAIT/STATION: deferred Tenderness to palpation in the cervical spine laboratory and microbiology Laboratory Tests 02/07/25 06:16 Test 02/07/25 06:16 Range/Units Serum Glucose 136 H 74-106 mg/dL Problem List Passing out, she likely had syncopal event in the morning on 02/06/2025 Dizziness, likely she has benign paroxysmal positional vertigo, but need to rule out other acute abnormality Brain tumor status post craniotomy ? Meningioma, looks stable compared to CT head dated 12/05/2023 Neck pain, secondary to fall on 02/06/2025 Assessment/Plan Monitoring Supportive treatment Telemetry EEG MRA head for abnormal MRI head Syncopal precautions discussed Consider more testing for the cervical spine if the pain worsens More recommendation per clinical course This medical document was created using an electronic medical record system with [employer] dictation system. Although this document has been carefully reviewed, there may still be some phonetic and typographical errors. These areas are purely typographical due to imperfections of the software programs, and do not reflect any compromise in the patient's medical care. Prognosis poor Plan discussed with: Patient, Other Total Time (mins): 35 HENOK DIAZ MD Feb 07, 2025 17:05
[2025-02-07] MEDS ORDERED: LORazepam 2MG/ML-1ML VIAL IV PRN (17:15)
--- NOTE | 2025-02-07 18:33 | DVHPN2 ---
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 Denies any cardiac symptoms at time of assessment Objective vital signs Vital Sign Date Time Temp Pulse Resp B/P (MAP) Pulse Ox O2 Delivery O2 Flow Rate FiO2 02/07/25 17:00 98.0 71 16 107/50 (69) 96 98.0 02/06/25 21:49 Nasal Cannula* 1 24 Total Intake and Output 02/06/25 02/06/25 02/07/25 15:00 23:00 07:00 Intake Total 500 ml Output Total 500 ml Balance 0 ml medications Current Medications Medications Dose Ordered Sig/Yan Route Start Time Stop Time Status Last Admin Dose Admin Sodium Chloride 10 ml Q8HR IV 02/06/25 14:00 02/07/25 14:30 10 ML Acetaminophen/ Hydrocodone Bitart 1 tab Q4HP PRN PO 02/06/25 09:15 02/07/25 15:21 1 TAB Ondansetron HCl 4 mg Q4HP PRN IV 02/06/25 09:15 02/06/25 19:17 4 MG Docusate Sodium 100 mg BIDPRN PRN PO 02/06/25 09:15 Acetaminophen 650 mg Q6HP PRN PO 02/06/25 09:15 Nitroglycerin 0.4 mg Q5MINP PRN SL 02/06/25 09:15 Morphine Sulfate 2 mg Q30M PRN IV 02/06/25 09:15 Ketorolac Tromethamine 15 mg Q6HPRN PRN IV 02/06/25 09:15 02/11/25 09:14 02/06/25 10:31 15 MG Ferrous Sulfate 325 mg DAILY PO 02/06/25 10:00 02/07/25 10:49 325 MG Atorvastatin Calcium 20 mg HS PO 02/06/25 22:00 02/06/25 21:06 20 MG Lisinopril 30 mg DAILY PO 02/06/25 10:00 02/07/25 10:50 30 MG Loratadine 10 mg DAILY PO 02/06/25 10:00 02/07/25 10:50 10 MG Hydroxyzine Pamoate 25 mg BID PO 02/06/25 22:00 02/07/25 10:51 25 MG Patient Own Medication 1.8 mg DAILY SC 02/06/25 10:00 Albuterol 2.5 mg Q4HPRN PRN NEB 02/06/25 10:30 Cancel Empaglifozin 25 mg DAILY PO 02/06/25 10:00 02/07/25 10:51 25 MG Ceftriaxone Sodium 50 ml @ 100 mls/hr DAILY@09 IV 02/08/25 09:00 Lorazepam 1 mg ONCE PRN IV 02/07/25 17:15 Examination: GENERAL:Normal, LUNGS:Normal, CVS:Normal, NEURO:Normal laboratory and microbiology Laboratory Tests 02/07/25 06:16 Test 02/07/25 06:16 Range/Units Serum Glucose 136 H 74-106 mg/dL Problem List/Assessment/Plan Problem List/Assessment/Plan Syncope with collapse, rule out cardiac etiology Rule out structural heart disease Rule out cardiac arrhythmias Rule out orthostatic hypotension Hypertension Dyslipidemia Insulin-dependent diabetes mellitus Right breast cancer Morbid obesity Plan/Recommendation (Dr. Graham) The patient will undergo a transthoracic echocardiogram to evaluate cardiac function as well as a carotid duplex to rule out stenosis. In the meantime, complete orthostatic vital signs and monitor ECG changes closely. Further orders per clinical course. Thank you for allowing us to participate in this patient's care. Please call if you have any questions or concerns. This medical document was created using an electronic medical record system with voice recognition software and computerized dictation system. Although this document has been carefully reviewed, there might still be some phonetic and typographical errors. Occasional wrong-word or ``sound-alike substitutions may have occurred due to the inherent limitations of voice recognition software. These areas are purely typographical due to imperfections of the software programs and do not reflect any compromise in the patient's medical care. Please read the chart carefully and recognize, using context, where these substitutions have occurred. Plan discussed with: Patient Date of Service: Feb 07, 2025 Billing Provider: YARI ALVA Common Visit Codes: [id number] INP/OBS CARE(HIGH) YARI ALVA Feb 07, 2025 18:33
[2025-02-07] MEDS: cefTRIAXone 1GM/50ML D5W 50 ML IV ONE (18:48)
[2025-02-08] VITALS (13 sets, daily range): BP systolic 88–168; BP diastolic 46–86; PULSE 78–103; RESP 15–18; TEMP 97.5–98.7; O2SAT 90–99
--- NOTE | 2025-02-08 09:01 | DVH ---
CLINICAL INFORMATION: 69 years old, Female; Abnormal MRI. Left supraclinoid ICA and left MCA flow vo ids not well seen on MRI. TECHNIQUE: 3-D [id number] MRA images were performed through the intracranial circulation without contrast. Additional 3-D reformatted images were obtained, stored, and reviewed. COMPARISON: Correlation made to MRI brain dated 02/07/2025 FINDINGS: There is moderate narrowing of the cavernous and supraclinoid segments of the left ICA, lik jamel due to densely calcified plaque when correlated with prior CT brain exam. No occlusion. Hypoplast ic A1 segment of the left anterior cerebral artery, a normal anatomic variant. The middle and anterio r cerebral arteries are otherwise unremarkable. The distal vertebral arteries, basilar artery, and po sterior cerebral arteries are normal in course and caliber. There is no evidence of large vessel occl usion, vascular malformation, or aneurysm. IMPRESSION: 1. Moderate narrowing of the left ICA cavernous and supraclinoid segments due to densely calcified pl aque. No occlusion. 2. Normal anatomic variant hypoplastic left A1 segment. 3. Otherwise, no evidence of large vessel occlusion, aneurysm, or vascular malformation
[2025-02-08] MEDS: cefTRIAXone 1GM/50ML D5W 50 ML IV SCH (09:25)
--- NOTE | 2025-02-08 09:51 | DVHPN2 ---
Reviewed: Care Plan, H&P, Labs, Medications, Previous Orders, Radiology Changes from previous H/P or p: No Changes Eyes: No Pain, No Vision change, No Conjunctivae inflammation, No Eyelid inflammation, No Other, No Redness ENT: No Ear pain, No Ear discharge, No Nose pain, No Nose discharge, No Nose congestion, No Mouth pain, No Mouth swelling, No Throat pain, No Throat swelling, No Other Cardiovascular: No Chest Pain, No Palpitations, No Orthopnea, No Paroxysmal Noc. Dyspnea, No Edema, No Lt Headedness, No Other Respiratory: No Cough, No Dry, No Shortness of breath, No SOB with excertion, No Wheezing, No Hemoptysis, No Pleuritic Pain, No Sputum, No Other Gastrointestinal: No Nausea, No Vomiting, No Abdominal Pain, No Diarrhea, No Constipation, No Melena, No Hematochezia, No Other Genitourinary: No Dysuria, No Frequency, No Incontinence, No Hematuria, No Retention, No Other Musculoskeletal: No other, No neck pain, No shoulder pain, No arm pain, No back pain, No hand pain, No leg pain, No foot pain Skin: No Rash, No Lesions, No Jaundice, No Bruising, No Other Objective Vitals Vital Signs Date Time Temp Pulse Resp B/P (MAP) Pulse Ox O2 Delivery O2 Flow Rate FiO2 02/08/25 09:26 137/47 02/08/25 09:00 97.6 87 15 93 97.6 02/07/25 20:00 Nasal Cannula* 1 24 Intake/Output Intake and Output 02/08/25 07:00 Intake Total 1725 ml Output Total 1100 ml Balance 625 ml Intake Oral 1725 ml Output Urine Total 1100 ml # Voids 5 # Bowel Movements 1 Medications Current Medications Medications Dose Ordered Sig/Yan Route Start Time Stop Time Status Last Admin Dose Admin Sodium Chloride 10 ml Q8HR IV 02/06/25 14:00 02/08/25 05:57 10 ML Acetaminophen/ Hydrocodone Bitart 1 tab Q4HP PRN PO 02/06/25 09:15 02/08/25 02:31 1 TAB Ondansetron HCl 4 mg Q4HP PRN IV 02/06/25 09:15 02/08/25 02:52 4 MG Docusate Sodium 100 mg BIDPRN PRN PO 02/06/25 09:15 Acetaminophen 650 mg Q6HP PRN PO 02/06/25 09:15 Nitroglycerin 0.4 mg Q5MINP PRN SL 02/06/25 09:15 Morphine Sulfate 2 mg Q30M PRN IV 02/06/25 09:15 Ketorolac Tromethamine 15 mg Q6HPRN PRN IV 02/06/25 09:15 02/11/25 09:14 02/06/25 10:31 15 MG Ferrous Sulfate 325 mg DAILY PO 02/06/25 10:00 02/08/25 09:26 325 MG Atorvastatin Calcium 20 mg HS PO 02/06/25 22:00 02/07/25 21:11 20 MG Lisinopril 30 mg DAILY PO 02/06/25 10:00 02/07/25 10:50 30 MG Loratadine 10 mg DAILY PO 02/06/25 10:00 02/08/25 09:26 10 MG Hydroxyzine Pamoate 25 mg BID PO 02/06/25 22:00 02/08/25 09:26 25 MG Patient Own Medication 1.8 mg DAILY SC 02/06/25 10:00 Albuterol 2.5 mg Q4HPRN PRN NEB 02/06/25 10:30 Cancel Empaglifozin 25 mg DAILY PO 02/06/25 10:00 02/08/25 09:25 25 MG Ceftriaxone Sodium 50 ml @ 100 mls/hr DAILY@09 IV 02/08/25 09:00 02/08/25 09:25 100 MLS/HR Lorazepam 1 mg ONCE PRN IV 02/07/25 17:15 Laboratory Results Laboratory Tests 02/07/25 06:16 Urinalysis Test 02/07/25 04:30 Urine Color Light-yellow (Yellow) Urine Clarity Clear (Clear) Urine pH 5.5 (5.0-9.0) Urine Specific Minto 1.015 (1.001-1.035) Urine Protein Negative (Negative) Urine Ketones Negative (Negative) Urine Blood Negative /uL (Negative) Urine Nitrite Negative (Negative) Urine Bilirubin Negative (Negative) Urine Urobilinogen Normal mg/dL (Negative) Urine Leukocyte Esterase 3+ /uL (Negative) Urine RBC 1 /hpf (0 - 4) Urine Microscopic WBC 36 /HPF (0-5) H Urine Squamous Epithelial Cells Few /hpf (<5) Urine Bacteria Few /hpf (None Seen) H Urine Yeast (Budding) Occasional /hpf (None Urine Glucose 4+ mg/dL (Normal) H Microbiology Microbiology Date/Time Source Procedure Growth Status 02/07/25 04:30 Voided Urine Urine Culture - Preliminary Resulted Labs and/or images reviewed: Labs reviewed by me, Image(s) reviewed by me Assessment/Plan Assessment/Plan Syncope and collapse cardiology and neurology consult appreciated Sepsis Secondary to urinary tract infection: Urine cultures growing more than three types of bacteria, continue rocephin Rule out structural heart disease Rule out cardiac arrhythmias Rule out orthostatic hypotension Hypertension Dyslipidemia History of Brain tumor status post craniotomy History of right breast cancer Insulin-dependent diabetes mellitus Right breast cancer Morbid obesity Time Spent 65 minutes Patient is full code Advanced care planning time 20 minutes Carotid ultrasound 50 percent stenosis bilateral carotid bulbs MRI brain shows previous surgical changes, no recent acute changes Echocardiogram result pending Plan discussed with: Patient My Orders Orders - MEREDITH HENRY MD Procedure Category Date Status Time Blood Culture EULA 02/07/25 In Process 11:41 Urine Bacterial EULA 02/07/25 In Process Culture 11:41 Pharmacy OLGA 02/07/25 In Process Clarification: 13:40 Ceftriaxone 1gm/50ml PHA 02/08/25 In Process D5w (Rocephin) 09:00 Date of Service: Feb 08, 2025 Billing Provider: MEREDITH HENRY MD Common Visit Codes: [id number] INP/OBS CARE(HIGH) MEREDITH HENRY MD Feb 08, 2025 09:51
[2025-02-08] MEDS ORDERED: levoFLOXacin 500MG 100 ML IV SCH (10:00)
--- NOTE | 2025-02-08 10:25 | ECG ---
[facility] Test Date: 2025-02-08 Test Time: 04:08:44 Pat Name: JAY TAYLOR [facility] Gender[facility] F Staff Nurse: kike : 1955 Requested By: YARI ALVA Order Number: [id number] Reading MD: Jose Graham Measurements Intervals Byers Rate: 87 P: 70 RI: 146 QRS: -19 QRSD: 102 T: 37 QT: 408 QTc: 491 Interpretive Statements Sinus rhythm Borderline left axis deviation Low voltage, extremity leads Borderline prolonged QT interval Baseline wander in lead(s) II,III,aVF,V1,V2,V3,V4,V5,V6 Electronically Signed On 02-10-2025 18:13:09 PDT by Jose Graham Please click the below link to view image of tracing.
[2025-02-08] MEDS ORDERED: ALBUTEROL SULF 2.5 MG/0.5ML(0.5%) NEB SOLN NEB PRN (15:15)
[2025-02-08] MEDS: ALBUTEROL SULF 2.5 MG/0.5ML(0.5%) NEB SOLN NEB ONE (15:33)
--- NOTE | 2025-02-08 16:09 | DVHPN2 ---
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 Objective vital signs Vital Sign Date Time Temp Pulse Resp B/P (MAP) Pulse Ox O2 Delivery O2 Flow Rate FiO2 02/08/25 15:39 98 18 99 02/08/25 15:33 Nasal Cannula 2.0 02/08/25 15:33 28 02/08/25 13:00 97.7 88/55 (66) 97.7 Total Intake and Output 02/07/25 02/07/25 02/08/25 15:00 23:00 07:00 Intake Total 825 ml 900 ml Output Total 1100 ml Balance -275 ml 900 ml medications Current Medications Medications Dose Ordered Sig/Yan Route Start Time Stop Time Status Last Admin Dose Admin Sodium Chloride 10 ml Q8HR IV 02/06/25 14:00 02/08/25 05:57 10 ML Acetaminophen/ Hydrocodone Bitart 1 tab Q4HP PRN PO 02/06/25 09:15 02/08/25 02:31 1 TAB Ondansetron HCl 4 mg Q4HP PRN IV 02/06/25 09:15 02/08/25 02:52 4 MG Docusate Sodium 100 mg BIDPRN PRN PO 02/06/25 09:15 Acetaminophen 650 mg Q6HP PRN PO 02/06/25 09:15 Nitroglycerin 0.4 mg Q5MINP PRN SL 02/06/25 09:15 Morphine Sulfate 2 mg Q30M PRN IV 02/06/25 09:15 Ketorolac Tromethamine 15 mg Q6HPRN PRN IV 02/06/25 09:15 02/11/25 09:14 02/06/25 10:31 15 MG Ferrous Sulfate 325 mg DAILY PO 02/06/25 10:00 02/08/25 09:26 325 MG Atorvastatin Calcium 20 mg HS PO 02/06/25 22:00 02/07/25 21:11 20 MG Lisinopril 30 mg DAILY PO 02/06/25 10:00 02/07/25 10:50 30 MG Loratadine 10 mg DAILY PO 02/06/25 10:00 02/08/25 09:26 10 MG Hydroxyzine Pamoate 25 mg BID PO 02/06/25 22:00 02/08/25 09:26 25 MG Patient Own Medication 1.8 mg DAILY SC 02/06/25 10:00 Albuterol 2.5 mg Q4HPRN PRN NEB 02/06/25 10:30 Cancel Empaglifozin 25 mg DAILY PO 02/06/25 10:00 02/08/25 09:25 25 MG Ceftriaxone Sodium 50 ml @ 100 mls/hr DAILY@09 IV 02/08/25 09:00 02/08/25 09:25 100 MLS/HR Lorazepam 1 mg ONCE PRN IV 02/07/25 17:15 Albuterol 2.5 mg Q4HPRN PRN NEB 02/08/25 15:15 Examination: GENERAL:Normal, LUNGS:Normal, CVS:Normal, NEURO:Normal laboratory and microbiology Laboratory Tests 02/07/25 06:16 Test 02/07/25 06:16 Range/Units Serum Glucose 136 H 74-106 mg/dL Problem List/Assessment/Plan Problem List/Assessment/Plan Syncope with collapse, rule out cardiac etiology Rule out structural heart disease Rule out cardiac arrhythmias Rule out orthostatic hypotension Hypertension Dyslipidemia Insulin-dependent diabetes mellitus Right breast cancer Morbid obesity Plan/Recommendation (Dr. Graham) Transthoracic echocardiogram to evaluate cardiac function. Bilateral carotid ultrasound reveals moderate calcified plaque formation in the right carotid bulb and mild plaque formation noted in the left carotid bulb. In the meantime, complete orthostatic vital signs and monitor ECG changes closely. Further orders per clinical course. Thank you for allowing us to participate in this patient's care. Please call if you have any questions or concerns. This medical document was created using an electronic medical record system with voice recognition software and computerized dictation system. Although this document has been carefully reviewed, there might still be some phonetic and typographical errors. Occasional wrong-word or ``sound-alike substitutions may have occurred due to the inherent limitations of voice recognition software. These areas are purely typographical due to imperfections of the software programs and do not reflect any compromise in the patient's medical care. Please read the chart carefully and recognize, using context, where these substitutions have occurred. Plan discussed with: Patient Date of Service: Feb 08, 2025 Billing Provider: YARI ALVA Common Visit Codes: [id number] INP/OBS CARE(HIGH) YARI ALVA Feb 08, 2025 16:09
--- NOTE | 2025-02-08 22:40 | DVHPN2 ---
Progress Note - Dictate Date Seen: Feb 08, 2025 Medical Necessity Reason Pt with a Central, PICC or Fol: No Subjective Mr. Cheng is a right-handed female with a history of hypertension, diabetes, dyslipidemia, breast cancer, brain tumor, asthma, she was brought to the [facility] on 02/06/25 with a chief complaint of passing out. 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 After using bathroom, when she was standing up, she had dizziness/lightheaded, and she fell down onto the floor, she may have loss of consciousness briefly, but on the floor, she had dizziness/intermittent spinning sensation lasting for 2 minutes triggered by any head movement, she was had headache, otherwise she denies chest pain, code feeling, hot feeling, increased sweating, focal weakness numbness. She was never had similar problems previously Previous evaluation: CT head, 02/06/2025: Status post craniotomy MRI head, 02/07/2025: Status post craniotomy. Stable left mass lesion, likely meningioma WBC/HB/PLT/MCV, 02/06/2025: 12.3/10.8/296/62.8 HGB A1c, 02/07/2020 5:7 TSH, 02/06/25: 0.6 Carotid Doppler, 02/06/2025: Moderate calcified plaque formation carotid bulb with approximately 50% stenosis. Less than 50% stenosis at the left carotid bulb noted CT head, 02/06/2025: 1. No CT evidence of acute intracranial abnormality. 2. Moderate right frontal scalp hematoma. 3. Stable appearing postsurgical changes and areas of encephalomalacia as described above CT C-spine, 02/06/2025: No evidence of acute cervical spine fracture or traumatic malalignment MRI head, 02/07/2025: Right frontal scalp hematoma. No evidence of acute infarction, intracranial hemorrhage, or hydrocephalus. Postsurgical changes left frontotemporal region with underlying cystic encephalomalacia and surrounding gliosis in the left frontal and anterior temporal lobes. Suggestion of a mass in the left subfrontal region measuring up to 31 mm. This is likely unchanged dating back to head CT 12/15/2023. Could represent a meningioma. Recommend further evaluation with MRI of the brain with contrast. Left supraclinoid ICA and left MCA flow voids are not well seen. Recommend further evaluation with MRA of the brain MRA head, 02/08/2025: 1. Moderate narrowing of the left ICA cavernous and supraclinoid segments due to densely calcified plaque. No occlusion. 2. Normal anatomic variant hypoplastic left A1 segment. 3. Otherwise, no evidence of large vessel occlusion, aneurysm, or vascular malformation vital signs Vital Sign Date Time Temp Pulse Resp B/P (MAP) Pulse Ox O2 Delivery O2 Flow Rate FiO2 02/08/25 21:00 98.1 103 18 120/50 (73) 90 98.1 02/08/25 20:09 Nasal Cannula* 2 28 Total Intake and Output 02/07/25 02/07/25 02/08/25 15:00 23:00 07:00 Intake Total 825 ml 900 ml Output Total 1100 ml Balance -275 ml 900 ml medications Current Medications Medications Dose Ordered Sig/Yan Route Start Time Stop Time Status Last Admin Dose Admin Sodium Chloride 10 ml Q8HR IV 02/06/25 14:00 02/08/25 20:57 10 ML Acetaminophen/ Hydrocodone Bitart 1 tab Q4HP PRN PO 02/06/25 09:15 02/08/25 20:56 1 TAB Ondansetron HCl 4 mg Q4HP PRN IV 02/06/25 09:15 02/08/25 02:52 4 MG Docusate Sodium 100 mg BIDPRN PRN PO 02/06/25 09:15 Acetaminophen 650 mg Q6HP PRN PO 02/06/25 09:15 Nitroglycerin 0.4 mg Q5MINP PRN SL 02/06/25 09:15 Morphine Sulfate 2 mg Q30M PRN IV 02/06/25 09:15 Ketorolac Tromethamine 15 mg Q6HPRN PRN IV 02/06/25 09:15 02/11/25 09:14 02/06/25 10:31 15 MG Ferrous Sulfate 325 mg DAILY PO 02/06/25 10:00 02/08/25 09:26 325 MG Atorvastatin Calcium 20 mg HS PO 02/06/25 22:00 02/08/25 20:56 20 MG Lisinopril 30 mg DAILY PO 02/06/25 10:00 02/07/25 10:50 30 MG Loratadine 10 mg DAILY PO 02/06/25 10:00 02/08/25 09:26 10 MG Hydroxyzine Pamoate 25 mg BID PO 02/06/25 22:00 02/08/25 20:55 25 MG Patient Own Medication 1.8 mg DAILY SC 02/06/25 10:00 Albuterol 2.5 mg Q4HPRN PRN NEB 02/06/25 10:30 Cancel Empaglifozin 25 mg DAILY PO 02/06/25 10:00 02/08/25 09:25 25 MG Ceftriaxone Sodium 50 ml @ 100 mls/hr DAILY@09 IV 02/08/25 09:00 02/08/25 09:25 100 MLS/HR Lorazepam 1 mg ONCE PRN IV 02/07/25 17:15 Albuterol 2.5 mg Q4HPRN PRN NEB 02/08/25 15:15 objective General: the patient is well developed and nourished. No acute distress. MENTAL STATUS: Awake and alert. Oriented to person, place, time and general circumstances. Able to give personal history. SPEECH, LANGUAGE, HIGHER CORTICAL FUNCTION: no aphasia or dysathria. CRANIAL NERVES: Pupils are equal, round and reactive. EOMs full and conjugate. No nystagmus. Facial sensation intact in all three divisions bilaterally. Mandibular strength intact. Facial muscles symmetrical and strength intact. SENSATION: Sensation to touch and pinprick is normal. MOTOR: Normal tone in the upper and lower extremity. Normal muscle bulk. No fasciculations. No abnormal movements or posturing. Muscle strength of the major groups in the extremities is 5/5. REFLEXES: Deep tendon reflexes are symmetrical. No pathological reflexes. CEREBELLAR/COORDINATION: Finger to nose and heel to charles are normal bilaterally. GAIT/STATION: deferred Tenderness to palpation in the cervical spine laboratory and microbiology Laboratory Tests 02/07/25 06:16 Test 02/07/25 06:16 Range/Units Serum Glucose 136 H 74-106 mg/dL Problem List Passing out, she likely had syncopal event in the morning on 02/06/2025 Dizziness, likely she has benign paroxysmal positional vertigo, but need to rule out other acute abnormality Brain tumor status post craniotomy ? Meningioma, stable compared to CT head dated 12/05/2023 Neck pain, secondary to fall on 02/06/2025 Assessment/Plan Monitoring Supportive treatment Telemetry EEG Syncopal precautions discussed Further address benign paroxysmal positional vertigo as outpatient More recommendation per clinical course This medical document was created using an electronic medical record system with scoo mobility dictation system. Although this document has been carefully reviewed, there may still be some phonetic and typographical errors. These areas are purely typographical due to imperfections of the software programs, and do not reflect any compromise in the patient's medical care. Prognosis poor Plan discussed with: Patient, Other HENOK DIAZ MD Feb 08, 2025 22:40
[2025-02-09] VITALS (11 sets, daily range): BP systolic 109–146; BP diastolic 46–67; PULSE 79–106; RESP 16–20; TEMP 97.6–99; O2SAT 90–99
[2025-02-09] MEDS: diphenhdrAMINE HCL 25 MG CAP PO PRN (08:42)
--- NOTE | 2025-02-09 10:48 | DVHPN2 ---
Reviewed: Care Plan, H&P, Labs, Medications, Previous Orders, Radiology Changes from previous H/P or p: No Changes Eyes: No Pain, No Vision change, No Conjunctivae inflammation, No Eyelid inflammation, No Other, No Redness ENT: No Ear pain, No Ear discharge, No Nose pain, No Nose discharge, No Nose congestion, No Mouth pain, No Mouth swelling, No Throat pain, No Throat swelling, No Other Cardiovascular: No Chest Pain, No Palpitations, No Orthopnea, No Paroxysmal Noc. Dyspnea, No Edema, No Lt Headedness, No Other Respiratory: No Cough, No Dry, No Shortness of breath, No SOB with excertion, No Wheezing, No Hemoptysis, No Pleuritic Pain, No Sputum, No Other Gastrointestinal: No Nausea, No Vomiting, No Abdominal Pain, No Diarrhea, No Constipation, No Melena, No Hematochezia, No Other Genitourinary: No Dysuria, No Frequency, No Incontinence, No Hematuria, No Retention, No Other Musculoskeletal: No other, No neck pain, No shoulder pain, No arm pain, No back pain, No hand pain, No leg pain, No foot pain Skin: No Rash, No Lesions, No Jaundice, No Bruising, No Other Objective Vitals Vital Signs Date Time Temp Pulse Resp B/P (MAP) Pulse Ox O2 Delivery O2 Flow Rate FiO2 02/09/25 10:00 135/55 02/09/25 09:28 86 16 96 2.0 28 02/09/25 09:00 98.0 98.0 02/09/25 07:26 Nasal Cannula* Intake/Output Intake and Output 02/09/25 07:00 Intake Total 1620 ml Output Total 900 ml Balance 720 ml Intake Oral 1570 ml IV Total 50 ml Output Urine Total 900 ml # Voids 4 Medications Current Medications Medications Dose Ordered Sig/Yan Route Start Time Stop Time Status Last Admin Dose Admin Sodium Chloride 10 ml Q8HR IV 02/06/25 14:00 02/09/25 05:25 10 ML Acetaminophen/ Hydrocodone Bitart 1 tab Q4HP PRN PO 02/06/25 09:15 02/08/25 20:56 1 TAB Ondansetron HCl 4 mg Q4HP PRN IV 02/06/25 09:15 02/08/25 02:52 4 MG Docusate Sodium 100 mg BIDPRN PRN PO 02/06/25 09:15 Acetaminophen 650 mg Q6HP PRN PO 02/06/25 09:15 Nitroglycerin 0.4 mg Q5MINP PRN SL 02/06/25 09:15 Morphine Sulfate 2 mg Q30M PRN IV 02/06/25 09:15 Ketorolac Tromethamine 15 mg Q6HPRN PRN IV 02/06/25 09:15 02/11/25 09:14 02/06/25 10:31 15 MG Ferrous Sulfate 325 mg DAILY PO 02/06/25 10:00 02/09/25 10:02 325 MG Atorvastatin Calcium 20 mg HS PO 02/06/25 22:00 02/08/25 20:56 20 MG Lisinopril 30 mg DAILY PO 02/06/25 10:00 02/07/25 10:50 30 MG Loratadine 10 mg DAILY PO 02/06/25 10:00 02/09/25 10:01 10 MG Hydroxyzine Pamoate 25 mg BID PO 02/06/25 22:00 02/09/25 10:01 25 MG Patient Own Medication 1.8 mg DAILY SC 02/06/25 10:00 Albuterol 2.5 mg Q4HPRN PRN NEB 02/06/25 10:30 Cancel Empaglifozin 25 mg DAILY PO 02/06/25 10:00 02/09/25 10:01 25 MG Ceftriaxone Sodium 50 ml @ 100 mls/hr DAILY@09 IV 02/08/25 09:00 02/09/25 10:02 100 MLS/HR Lorazepam 1 mg ONCE PRN IV 02/07/25 17:15 Albuterol 2.5 mg Q4HPRN PRN NEB 02/08/25 15:15 Diphenhydramine HCl 25 mg Q8HP PRN PO 02/09/25 08:30 02/09/25 08:42 25 MG Laboratory Results Laboratory Tests 02/07/25 06:16 Urinalysis Test 02/07/25 04:30 Urine Color Light-yellow (Yellow) Urine Clarity Clear (Clear) Urine pH 5.5 (5.0-9.0) Urine Specific [place] 1.015 (1.001-1.035) Urine Protein Negative (Negative) Urine Ketones Negative (Negative) Urine Blood Negative /uL (Negative) Urine Nitrite Negative (Negative) Urine Bilirubin Negative (Negative) Urine Urobilinogen Normal mg/dL (Negative) Urine Leukocyte Esterase 3+ /uL (Negative) Urine RBC 1 /hpf (0 - 4) Urine Microscopic WBC 36 /HPF (0-5) H Urine Squamous Epithelial Cells Few /hpf (<5) Urine Bacteria Few /hpf (None Seen) H Urine Yeast (Budding) Occasional /hpf (None Urine Glucose 4+ mg/dL (Normal) H Microbiology Microbiology Date/Time Source Procedure Growth Status 02/07/25 12:30 Blood Blood Culture - Preliminary NO GROWTH AFTER 24 HOURS OF INCUBATION. Resulted 02/07/25 04:30 Voided Urine Urine Culture - Final Complete Labs and/or images reviewed: Labs reviewed by me, Image(s) reviewed by me Assessment/Plan Assessment/Plan Syncope and collapse cardiology and neurology consult appreciated Sepsis Secondary to urinary tract infection: Urine cultures growing more than three types of bacteria, continue rocephin Rule out structural heart disease Rule out cardiac arrhythmias Rule out orthostatic hypotension Hypertension Dyslipidemia History of Brain tumor status post craniotomy History of right breast cancer Insulin-dependent diabetes mellitus Right subconjunctival hemorrhage Left eye blind Morbid obesity Time Spent 55 minutes Patient is full code Advanced care planning time 20 minutes Carotid ultrasound 50 percent stenosis bilateral carotid bulbs MRI brain shows previous surgical changes, no recent acute changes Echocardiogram result pending Spoke with the patient's daughter Nicolle on the phone Plan discussed with: Patient My Orders Orders - MEREDITH HENRY MD Procedure Category Date Status Time Albuterol Medneb PHA 02/08/25 In Process (Ventolin Medneb) 15:15 Diphenhdramine PHA 02/09/25 In Process Capsule (Benadryl 08:30 Date of Service: Feb 09, 2025 Billing Provider: MEREDITH HENRY MD Common Visit Codes: [id number] INP/OBS CARE(HIGH) MEREDITH HENRY MD Feb 09, 2025 10:48
--- NOTE | 2025-02-09 11:19 | DVHPN2 ---
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 Objective vital signs Vital Sign Date Time Temp Pulse Resp B/P (MAP) Pulse Ox O2 Delivery O2 Flow Rate FiO2 02/09/25 10:00 135/55 02/09/25 09:28 86 16 96 2.0 28 02/09/25 09:00 98.0 98.0 02/09/25 07:26 Nasal Cannula* Total Intake and Output 02/08/25 02/08/25 02/09/25 15:00 23:00 07:00 Intake Total 50 ml 820 ml 750 ml Output Total 900 ml Balance 50 ml -80 ml 750 ml medications Current Medications Medications Dose Ordered Sig/Yan Route Start Time Stop Time Status Last Admin Dose Admin Sodium Chloride 10 ml Q8HR IV 02/06/25 14:00 02/09/25 05:25 10 ML Acetaminophen/ Hydrocodone Bitart 1 tab Q4HP PRN PO 02/06/25 09:15 02/08/25 20:56 1 TAB Ondansetron HCl 4 mg Q4HP PRN IV 02/06/25 09:15 02/08/25 02:52 4 MG Docusate Sodium 100 mg BIDPRN PRN PO 02/06/25 09:15 Acetaminophen 650 mg Q6HP PRN PO 02/06/25 09:15 Nitroglycerin 0.4 mg Q5MINP PRN SL 02/06/25 09:15 Morphine Sulfate 2 mg Q30M PRN IV 02/06/25 09:15 Ketorolac Tromethamine 15 mg Q6HPRN PRN IV 02/06/25 09:15 02/11/25 09:14 02/06/25 10:31 15 MG Ferrous Sulfate 325 mg DAILY PO 02/06/25 10:00 02/09/25 10:02 325 MG Atorvastatin Calcium 20 mg HS PO 02/06/25 22:00 02/08/25 20:56 20 MG Lisinopril 30 mg DAILY PO 02/06/25 10:00 02/07/25 10:50 30 MG Loratadine 10 mg DAILY PO 02/06/25 10:00 02/09/25 10:01 10 MG Hydroxyzine Pamoate 25 mg BID PO 02/06/25 22:00 02/09/25 10:01 25 MG Patient Own Medication 1.8 mg DAILY SC 02/06/25 10:00 Albuterol 2.5 mg Q4HPRN PRN NEB 02/06/25 10:30 Cancel Empaglifozin 25 mg DAILY PO 02/06/25 10:00 02/09/25 10:01 25 MG Ceftriaxone Sodium 50 ml @ 100 mls/hr DAILY@09 IV 02/08/25 09:00 02/09/25 10:02 100 MLS/HR Lorazepam 1 mg ONCE PRN IV 02/07/25 17:15 Albuterol 2.5 mg Q4HPRN PRN NEB 02/08/25 15:15 Diphenhydramine HCl 25 mg Q8HP PRN PO 02/09/25 08:30 02/09/25 08:42 25 MG Examination: GENERAL:Normal, LUNGS:Normal, CVS:Normal, NEURO:Normal laboratory and microbiology Laboratory Tests 02/07/25 06:16 Test 02/07/25 06:16 Range/Units Serum Glucose 136 H 74-106 mg/dL Problem List/Assessment/Plan Problem List/Assessment/Plan Syncope with collapse, rule out cardiac etiology Rule out cardiac arrhythmias Positive orthostatic hypotension Hypertension Dyslipidemia Insulin-dependent diabetes mellitus Right breast cancer Morbid obesity Plan/Recommendation (Dr. Graham) Transthoracic echocardiogram reveals EF 60%. Bilateral carotid ultrasound reveals moderate calcified plaque formation in the right carotid bulb and mild plaque formation noted in the left carotid bulb. Patient found to have positive orthostatics. Initiate J[place]ito hose compression stockings at this time, consider abdominal binder if needed. Continue with close cardiac surveillance and notify cardiology team for any ECG changes. Thank you for allowing us to participate in this patient's care. Please call if you have any questions or concerns. This medical document was created using an electronic medical record system with voice recognition software and computerized dictation system. Although this document has been carefully reviewed, there might still be some phonetic and typographical errors. Occasional wrong-word or ``sound-alike substitutions may have occurred due to the inherent limitations of voice recognition software. These areas are purely typographical due to imperfections of the software programs and do not reflect any compromise in the patient's medical care. Please read the chart carefully and recognize, using context, where these substitutions have occurred. Plan discussed with: Patient Date of Service: Feb 09, 2025 Billing Provider: ALVA,YARI ACTUARIAL CONSULTANT Common Visit Codes: [id number] INP/OBS CARE(HIGH) YARI ALVA [facility] Feb 09, 2025 11:18
--- NOTE | 2025-02-09 12:19 | DVHSR ---
APPROVED REPORT EXAM: Two-dimensional and M-mode echocardiogram with Doppler and color Doppler. Blood Pressure: 124/45 mmHg INDICATION Syncope and collapse RISK FACTORS Obesity: Height: 5'0", Weight: 200 DIMENSIONS LVDd4.4 (3.8-5.7cm)LA (2D)4.4 (1.9-4.0cm)Aortic Root3.1 (2.0-3.7cm) LVDs3.1 (2.5-4.0cm)LA (MM) (1.9-4.0cm)Aortic Cusp Exc1.4 (1.5-2.0cm) EF (%) 60.0 (55-70%)Rt. Atrium4.3 (1.9-4.0cm)Asc. Aorta cm IVSd0.9 (0.7-1.1cm)RV (D) (1.8-2.4cm) PWd0.8 (0.7-1.1cm) Mitral Valve MitralMitral Stenosis E wave0.93m/sMV Mean GR.mmHg A wave1.18m/sMV Peak GR.mmHg E/A ratio0.82D MVAcm2 DECEL [id number] 1/2 Timems Aortic Valve Aortic ValveAortic Stenosis V11.06m/Regine Mean GR.7mmHg V21.94m/Regine Peak GR.15mmHg LVOT Diameter1.9 (1.8-2.4cm)Doppler AVA1.55cm2 Pulmonic Valve V21.09m/s Tricuspid Valve TR Velocity2.78m/s [id number] Other Information Technically limited study due to body habitus, patient lying flat. Conclusion Technically difficult study. Difficult acoustic windows. Biatrial enlargement. Mild mitral annular calcification. Mild aortic sclerosis. Left ventricular function is preserved. EF of 60% with normal RV function. Dopplers unremarkable. No pericardial effusion masses or vegetations.
--- NOTE | 2025-02-09 22:27 | DVHPN2 ---
Progress Note - Dictate Date Seen: Feb 09, 2025 Medical Necessity Reason Pt with a Central, PICC or Fol: No Subjective Mr. Cheng is a right-handed female with a history of hypertension, diabetes, dyslipidemia, breast cancer, brain tumor, asthma, she was brought to the [facility] on 02/06/25 with a chief complaint of passing out. I have seen and examined the patient, I have talked to her nurse, she walked and she did not have vertigo today, and the neck pain is much better (she requested [place] earlier today). 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 After using bathroom, when she was standing up, she had dizziness/lightheaded, and she fell down onto the floor, she may have loss of consciousness briefly, but on the floor, she had dizziness/intermittent spinning sensation lasting for 2 minutes triggered by any head movement, she was had headache, otherwise she denies chest pain, code feeling, hot feeling, increased sweating, focal weakness numbness. She was never had similar problems previously Previous evaluation: CT head, 02/06/2025: Status post craniotomy MRI head, 02/07/2025: Status post craniotomy. Stable left mass lesion, likely meningioma WBC/HB/PLT/MCV, 02/06/2025: 12.3/10.8/296/62.8 HGB A1c, 02/07/2020 5:7 TSH, 02/06/25: 0.6 Carotid Doppler, 02/06/2025: Moderate calcified plaque formation carotid bulb with approximately 50% stenosis. Less than 50% stenosis at the left carotid bulb noted CT head, 02/06/2025: 1. No CT evidence of acute intracranial abnormality. 2. Moderate right frontal scalp hematoma. 3. Stable appearing postsurgical changes and areas of encephalomalacia as described above CT C-spine, 02/06/2025: No evidence of acute cervical spine fracture or traumatic malalignment MRI head, 02/07/2025: Right frontal scalp hematoma. No evidence of acute infarction, intracranial hemorrhage, or hydrocephalus. Postsurgical changes left frontotemporal region with underlying cystic encephalomalacia and surrounding gliosis in the left frontal and anterior temporal lobes. Suggestion of a mass in the left subfrontal region measuring up to 31 mm. This is likely unchanged dating back to head CT 12/15/2023. Could represent a meningioma. Recommend further evaluation with MRI of the brain with contrast. Left supraclinoid ICA and left MCA flow voids are not well seen. Recommend further evaluation with MRA of the brain MRA head, 02/08/2025: 1. Moderate narrowing of the left ICA cavernous and supraclinoid segments due to densely calcified plaque. No occlusion. 2. Normal anatomic variant hypoplastic left A1 segment. 3. Otherwise, no evidence of large vessel occlusion, aneurysm, or vascular malformation vital signs Vital Sign Date Time Temp Pulse Resp B/P (MAP) Pulse Ox O2 Delivery O2 Flow Rate FiO2 02/09/25 21:25 98.6 106 17 127/49 (75) 90 98.6 02/09/25 09:28 2.0 28 02/09/25 08:00 Nasal Cannula* Total Intake and Output 02/08/25 02/08/25 02/09/25 15:00 23:00 07:00 Intake Total 50 ml 820 ml 750 ml Output Total 900 ml Balance 50 ml -80 ml 750 ml medications Current Medications Medications Dose Ordered Sig/Yan Route Start Time Stop Time Status Last Admin Dose Admin Sodium Chloride 10 ml Q8HR IV 02/06/25 14:00 02/09/25 15:06 10 ML Acetaminophen/ Hydrocodone Bitart 1 tab Q4HP PRN PO 02/06/25 09:15 02/09/25 15:06 1 TAB Ondansetron HCl 4 mg Q4HP PRN IV 02/06/25 09:15 02/08/25 02:52 4 MG Docusate Sodium 100 mg BIDPRN PRN PO 02/06/25 09:15 Acetaminophen 650 mg Q6HP PRN PO 02/06/25 09:15 Nitroglycerin 0.4 mg Q5MINP PRN SL 02/06/25 09:15 Morphine Sulfate 2 mg Q30M PRN IV 02/06/25 09:15 Ketorolac Tromethamine 15 mg Q6HPRN PRN IV 02/06/25 09:15 02/11/25 09:14 02/06/25 10:31 15 MG Ferrous Sulfate 325 mg DAILY PO 02/06/25 10:00 02/09/25 10:02 325 MG Atorvastatin Calcium 20 mg HS PO 02/06/25 22:00 02/09/25 21:19 20 MG Lisinopril 30 mg DAILY PO 02/06/25 10:00 02/07/25 10:50 30 MG Loratadine 10 mg DAILY PO 02/06/25 10:00 02/09/25 10:01 10 MG Hydroxyzine Pamoate 25 mg BID PO 02/06/25 22:00 02/09/25 21:19 25 MG Patient Own Medication 1.8 mg DAILY SC 02/06/25 10:00 Albuterol 2.5 mg Q4HPRN PRN NEB 02/06/25 10:30 Cancel Empaglifozin 25 mg DAILY PO 02/06/25 10:00 02/09/25 10:01 25 MG Ceftriaxone Sodium 50 ml @ 100 mls/hr DAILY@09 IV 02/08/25 09:00 02/09/25 10:02 100 MLS/HR Lorazepam 1 mg ONCE PRN IV 02/07/25 17:15 Albuterol 2.5 mg Q4HPRN PRN NEB 02/08/25 15:15 Diphenhydramine HCl 25 mg Q8HP PRN PO 02/09/25 08:30 02/09/25 16:56 25 MG objective General: the patient is well developed and nourished. No acute distress. MENTAL STATUS: Awake and alert. Oriented to person, place, time and general circumstances. Able to give personal history. SPEECH, LANGUAGE, HIGHER CORTICAL FUNCTION: no aphasia or dysathria. CRANIAL NERVES: Pupils are equal, round and reactive. EOMs full and conjugate. No nystagmus. Facial sensation intact in all three divisions bilaterally. Mandibular strength intact. Facial muscles symmetrical and strength intact. SENSATION: Sensation to touch and pinprick is normal. MOTOR: Normal tone in the upper and lower extremity. Normal muscle bulk. No fasciculations. No abnormal movements or posturing. Muscle strength of the major groups in the extremities is 5/5. REFLEXES: Deep tendon reflexes are symmetrical. No pathological reflexes. CEREBELLAR/COORDINATION: Finger to nose and heel to charles are normal bilaterally. GAIT/STATION: deferred Tenderness to palpation in the cervical spine laboratory and microbiology Laboratory Tests 02/07/25 06:16 Test 02/07/25 06:16 Range/Units Serum Glucose 136 H 74-106 mg/dL Problem List Passing out, she likely had syncopal event in the morning on 02/06/2025 Dizziness, likely she has benign paroxysmal positional vertigo, but need to rule out other acute abnormality Brain tumor status post craniotomy ? Meningioma, stable compared to CT head dated 12/05/2023 Neck pain, secondary to fall on 02/06/2025 Assessment/Plan Monitoring Supportive treatment Telemetry EEG Syncopal precautions discussed Further address benign paroxysmal positional vertigo as outpatient More recommendation per clinical course This medical document was created using an electronic medical record system with [employer] computerized dictation system. Although this document has been carefully reviewed, there may still be some phonetic and typographical errors. These areas are purely typographical due to imperfections of the software programs, and do not reflect any compromise in the patient's medical care. Prognosis poor Dietary Evaluation Review Comments: 1) [id number] + cardiac 2) Glucerna 8floz BID 3) Continue current plan of care Expected Outcomes/Goals: Pt will meet >75% estimated needs Fu 3-5 days Plan discussed with: Patient, Other HENOK DIAZ MD Feb 09, 2025 22:27
--- NOTE | 2025-02-09 23:07 | DVHEEG2 ---
Neurology EEG Procedural Note Procedural Note EXAM DATE: 02/07/2025 REFERRING DOCTOR: Dr. Diaz TECHNIQUE: Eighteen channels of EEG, 2 channels of EOG, and 1 channel of EKG were recorded using the International 10/20 system. CLINICAL DATA: The patient was referred for an EEG evaluation for the evidence of seizure disorder. MEDICATIONS: See the chart BACKGROUND ACTIVITY: While the patient was awake, the background activity consisted of well regulated 9 Hz rhythmic waveforms, symmetrically distributed over both posterior quadrants and was reactive to eye opening. ACTIVATION: Hyperventilation: Not done Photic Stimulation: Not done Sleep: Noticed IMPRESSION: This is a normal EEG. No focal, lateralized, or epileptiform features are noted. If clinically indicated to rule out a seizure disorder, recommend repeat EEG with sleep deprivation. The EKG channel showed a regular heart rate of 66/min. [place] [address] HENOK DIAZ MD Feb 09, 2025 23:07
[2025-02-10 05:34] VITALS: BP 111/61; PULSE 98; RESP 17; TEMP 98.1; O2SAT 90
[2025-02-10 07:27] VITALS: O2SAT 96
[2025-02-10 08:00] VITALS: PULSE 91; RESP 17; O2SAT 96
[2025-02-10 09:00] VITALS: BP 120/46; PULSE 96; RESP 16; TEMP 98.1; O2SAT 93
--- NOTE | 2025-02-10 10:07 | DVHDS2 ---
Discharge Summary Date of Admission Feb 06, 2025 at 09:13 Date of Discharge: Feb 10, 2025 Admitting Diagnosis Syncope Wounds: None Labs/Diagnostic Data: Laboratory Results Test 02/07/25 09:06 02/07/25 06:16 02/07/25 04:30 02/06/25 10:31 POC Glucose 179 mg/dl (70-106) White Blood Count 10.4 10^3/uL (4.4-10.8) Red Blood Count 5.43 10^6/uL (4.0-5.20) Hemoglobin 10.5 g/dL (12.2-16.2) Hematocrit 34.2 % (36.0-46.0) Mean Corpuscular Volume 62.9 fL (80.0-100.0) Mean Corpuscular Hemoglobin 19.4 pg (28.0-32.0) Mean Corpuscular Hemoglobin Concent 30.8 g/dL (32.0-36.0) Red Cell Distribution Width 15.6 % (11.8-14.3) Platelet Count 302 10^3/uL (140-450) Mean Platelet Volume 8.7 fL (6.9-10.8) Neutrophils (%) (Auto) 77.1 % (37.0-80.0) Lymphocytes (%) (Auto) 14.9 % (10.0-50.0) Monocytes (%) (Auto) 4.8 % (0.0-12.0) Eosinophils (%) (Auto) 3.0 % (0.0-7.0) Basophils (%) (Auto) 0.2 % (0.0-2.0) Neutrophils # (Auto) 8.0 10 ^3/uL (1.6-8.6) Lymphocytes # (Auto) 1.5 10 ^3/uL (0.4-5.4) Monocytes # (Auto) 0.5 10 ^3/uL (0-1.3) Eosinophils # (Auto) 0.3 10 ^3/uL (0-0.8) Basophils # (Auto) 0 10 ^3/uL (0-0.2) Nucleated Red Blood Cells 0.1 % Sodium Level 141 mmol/L (136-145) Potassium Level 4.3 mmol/L (3.5-5.1) Chloride Level 105 mmol/L (98-107) Carbon Dioxide Level 28 mmol/L (20-31) Anion Gap 8 (5-15) Blood Urea Nitrogen 22 mg/dL (9-23) Creatinine 0.82 mg/dL (0.550-1.02) Glomerular Filtration Rate Calc 76 mL/min (>90) BUN/Creatinine Ratio 26.8 (10.0-20.0) Serum Glucose 136 mg/dL (74-106) Calcium Level 9.6 mg/dL (8.7-10.4) Total Bilirubin 0.7 mg/dL (0.2-1.0) Aspartate Amino Transferase (AST) 15 U/L (13-40) Alanine Aminotransferase (ALT) 16 U/L (7-40) Alkaline Phosphatase 111 U/L (46-116) Total Protein 6.5 g/dL (5.7-8.2) Albumin 4.1 g/dL (3.2-4.8) Urine Color Light-yellow (Yellow) Urine Clarity Clear (Clear) Urine pH 5.5 (5.0-9.0) Urine Specific [place] 1.015 (1.001-1.035) Urine Protein Negative (Negative) Urine Ketones Negative (Negative) Urine Blood Negative /uL (Negative) Urine Nitrite Negative (Negative) Urine Bilirubin Negative (Negative) Urine Urobilinogen Normal mg/dL (Negative) Urine Leukocyte Esterase 3+ /uL (Negative) Urine RBC 1 /hpf (0 - 4) Urine Microscopic WBC 36 /HPF (0-5) Urine Squamous Epithelial Cells Few /hpf (<5) Urine Bacteria Few /hpf (None Seen) Urine Yeast (Budding) Occasional /hpf (None Urine Glucose 4+ mg/dL (Normal) Urine Opiates Screen Neg (NEGATIVE) Urine Fentanyl Screen Neg (NEGATIVE) Urine Barbiturates Screen Neg (NEGATIVE) Urine Phencyclidine Screen Neg (NEGATIVE) Urine Amphetamines Screen Neg (NEGATIVE) Urine Benzodiazepines Screen Neg (NEGATIVE) Urine Cocaine Screen Neg (NEGATIVE) Urine Cannabinoids Screen Neg (NEGATIVE) Troponin I High Sensitivity 3 ng/L (</=34) Test 02/06/25 07:36 Platelet Estimate Adequate Hypochromasia (manual) Marked Microcytosis Marked Target Cells Few Tear Drop Cells Few Ovalocytes Few Hemoglobin A1c 7.0 % A1C (<5.7) Thyroid Stimulating Hormone (TSH) 0.60 uIU/mL (0.55-4.78) Other Laboratory Tests 02/07/25 06:16 Brief Hx & Hospital Course: 69-year-old female with a history of hypertension hypercholesterolemia brain tumor status post craniotomy history of right breast cancer insulin-dependent diabetes left eye blind morbid obesity came in for syncopal episode. Patient was found to be in sepsis secondary to urinary tract infection started on Rocephin blood cultures negative urine cultures growing more than three bacteria. Patient was seen by the Cardiology CT head was negative carotid ultrasound was negative echocardiogram is normal seen also by the neurologist Dr. Braswell. Patient possibly has a positional vertigoor or sepsis secondary to UTI. Discharged home on Cipro and Antivert. She will follow up with the primary Dr. MRI brain and MRI brain negative Consults/Reason for consult Cardiology Neurology Operations or Procedures Head Carotid ultrasound Echocardiogram Condition at Discharge: Fair Final Diagnosis/Problems List Syncope and collapse cardiology and neurology consult appreciated Sepsis Secondary to urinary tract infection: Urine cultures growing more than three types of bacteria, continue rocephin Rule out structural heart disease Rule out cardiac arrhythmias Rule out orthostatic hypotension Hypertension Dyslipidemia History of Brain tumor status post craniotomy History of right breast cancer Insulin-dependent diabetes mellitus Right subconjunctival hemorrhage Left eye blind Morbid obesity Discharge Disposition: Home Discharge Instruct/Medications Diet: Cardiac 2g Na,low cholest Activity: Light activity Follow Up/Referral: Follow up With the primary Dr Resume all previous home medications Medications: Cipro Antivert Transmitted to [facility] 39 (Time taken for discharge summary 39 minutes) Discharge Statement: "Patient was advised to return to the ER or call 911 if any headaches, dizziness, shortness of breath, chest pain, abdominal pain, bleeding, fevers, or worsening of medical condition. Patient was counseled about treatment plan, medications, possible side effects, patientverbalized understanding. All questions were answered to the best of my ability. This discharge took greater then 30 minutes in planning, reviewing documentation, counseling the patient, and discussing with other team members." ASSESSMENT ASSESSMENT Hospital Course Uneventful Assessment Syncope and collapse cardiology and neurology consult appreciated Sepsis Secondary to urinary tract infection: Urine cultures growing more than three types of bacteria, continue rocephin Rule out structural heart disease Rule out cardiac arrhythmias Rule out orthostatic hypotension Hypertension Dyslipidemia History of Brain tumor status post craniotomy History of right breast cancer Insulin-dependent diabetes mellitus Right subconjunctival hemorrhage Left eye blind Morbid obesity Date of Service: Feb 10, 2025 Billing Provider: MREEDITH HENRY MD Common Visit Codes: [id number] DISCH DAY >30min MEREDITH HENRY MD Feb 10, 2025 10:07
[2025-02-10 12:30] VITALS: BP 120/62; PULSE 96; RESP 16; TEMP 36.7; O2SAT 96
--- NOTE | 2025-02-10 14:29 | DVHPN2 ---
Consult Progress Note Subjective Patient reports: Feels better Review of Systems: CVS:Normal (Denies CP, Palpitaitons), NEURO:Normal (denies dizziness, light headedness) Objective vital signs Vital Sign Date Time Temp Pulse Resp B/P (MAP) Pulse Ox O2 Delivery O2 Flow Rate FiO2 02/10/25 12:30 36.7 96 16 96 02/10/25 10:02 120/62 02/10/25 08:00 Room Air* 0 21 Total Intake and Output 02/09/25 02/09/25 02/10/25 15:00 23:00 07:00 Intake Total 50 ml 1100 ml 900 ml Balance 50 ml 1100 ml 900 ml medications Current Medications Medications Dose Ordered Sig/Yan Route Start Time Stop Time Status Last Admin Dose Admin Sodium Chloride 10 ml Q8HR IV 02/06/25 14:00 02/09/25 15:06 10 ML Acetaminophen/ Hydrocodone Bitart 1 tab Q4HP PRN PO 02/06/25 09:15 02/09/25 15:06 1 TAB Ondansetron HCl 4 mg Q4HP PRN IV 02/06/25 09:15 02/08/25 02:52 4 MG Docusate Sodium 100 mg BIDPRN PRN PO 02/06/25 09:15 Acetaminophen 650 mg Q6HP PRN PO 02/06/25 09:15 Nitroglycerin 0.4 mg Q5MINP PRN SL 02/06/25 09:15 Morphine Sulfate 2 mg Q30M PRN IV 02/06/25 09:15 Ketorolac Tromethamine 15 mg Q6HPRN PRN IV 02/06/25 09:15 02/11/25 09:14 02/06/25 10:31 15 MG Ferrous Sulfate 325 mg DAILY PO 02/06/25 10:00 02/10/25 09:58 325 MG Atorvastatin Calcium 20 mg HS PO 02/06/25 22:00 02/09/25 21:19 20 MG Lisinopril 30 mg DAILY PO 02/06/25 10:00 02/10/25 10:02 30 MG Loratadine 10 mg DAILY PO 02/06/25 10:00 02/10/25 09:58 10 MG Hydroxyzine Pamoate 25 mg BID PO 02/06/25 22:00 02/10/25 10:03 25 MG Patient Own Medication 1.8 mg DAILY SC 3/11/25 10:00 Albuterol 2.5 mg Q4HPRN PRN NEB 02/06/25 10:30 Cancel Empaglifozin 25 mg DAILY PO 02/06/25 10:00 02/10/25 10:03 25 MG Ceftriaxone Sodium 50 ml @ 100 mls/hr DAILY@09 IV 02/08/25 09:00 02/09/25 10:02 100 MLS/HR Lorazepam 1 mg ONCE PRN IV 02/07/25 17:15 Albuterol 2.5 mg Q4HPRN PRN NEB 02/08/25 15:15 Diphenhydramine HCl 25 mg Q8HP PRN PO 02/09/25 08:30 02/09/25 16:56 25 MG Examination: CVS:Normal (Telemetry reviewed, consistent with sinus rhythm at 84 beats per minute, no overnight events noted. BP stable.) laboratory and microbiology Laboratory Tests 02/07/25 06:16 Test 02/07/25 06:16 Range/Units Serum Glucose 136 H 74-106 mg/dL Problem List/Assessment/Plan Problem List/Assessment/Plan Problem List/Assessment/Plan Problem List/Assessment/Plan Syncope with collapse, rule out cardiac etiology Rule out cardiac arrhythmias Positive orthostatic hypotension Hypertension Dyslipidemia Insulin-dependent diabetes mellitus Right breast cancer Morbid obesity Plan/Recommendation (Dr. Graham) Transthoracic echocardiogram reveals EF 60%. Bilateral carotid ultrasound reveals moderate calcified plaque formation in the right carotid bulb and mild plaque formation noted in the left carotid bulb. Patient found to have positive orthostatics. Initiate Josesito hose compression stockings at this time, patient to continue with hydration. Follow up repeat orthostatics, if negative no further cardiac workup indicated. Stable from Cardiology standpoint. Outpatient event monitoring. Thank you for allowing us to participate in this patient's care. Please call if you have any questions or concerns. This medical document was created using an electronic medical record system with voice recognition software and computerized dictation system. Although this document has been carefully reviewed, there might still be some phonetic and typographical errors. Occasional wrong-word or ``sound-alike substitutions may have occurred due to the inherent limitations of voice recognition software. These areas are purely typographical due to imperfections of the software programs and do not reflect any compromise in the patient's medical care. Please read the chart carefully and recognize, using context, where these substitutions have occurred. Thank you for allowing me to participate in the management of this patient. The treatment plan was discussed with and agreed upon by patient/family including requesting consultants and ordering of imaging/procedures. Plan discussed with: Patient Dietary Evaluation Review Comments: 1) [id number] + cardiac 2) Glucerna 8floz BID 3) Continue current plan of care Expected Outcomes/Goals: Pt will meet >75% estimated needs Fu 3-5 days Date of Service: Feb 10, 2025 Billing Provider: ROMEO THOMPSON Common Visit Codes: [id number] INP/OBS CARE(HIGH) ROMEO THOMPSON Feb 10, 2025 14:29
--- NOTE | 2025-02-10 23:19 | DVHPN2 ---
Consult Progress Note Subjective Patient reports: Feels better Review of Systems: CVS:Normal, NEURO:Normal Other Systems: Patient was seen and evaluated in follow up. Patient has no new complaints at this time. Patient denies any cardiac symptoms. Patient is cardiac stable for discharge. Telemetry reviewed. Objective vital signs Vital Sign Date Time Temp Pulse Resp B/P (MAP) Pulse Ox O2 Delivery O2 Flow Rate FiO2 02/10/25 12:30 36.7 96 16 96 02/10/25 10:02 120/62 02/10/25 08:00 Room Air* 0 21 Total Intake and Output 02/09/25 02/09/25 02/10/25 15:00 23:00 07:00 Intake Total 50 ml 1100 ml 900 ml Balance 50 ml 1100 ml 900 ml medications Current Medications Medications Dose Ordered Sig/Yan Route Start Time Stop Time Status Last Admin Dose Admin Albuterol 2.5 mg Q4HPRN PRN NEB 02/06/25 10:30 Cancel Examination: GENERAL:Normal, HEENT:Normal, NECK:Normal, LUNGS:Normal, CVS:Normal, ABDOMEN:Normal, SKIN:Normal, NEURO:Normal laboratory and microbiology Laboratory Tests 02/07/25 06:16 Test 02/07/25 06:16 Range/Units Serum Glucose 136 H 74-106 mg/dL Problem List/Assessment/Plan Problem List/Assessment/Plan Syncope with collapse. Positive orthostatic hypotension. Hypertension. Dyslipidemia. Insulin-dependent diabetes mellitus. Right breast cancer. Morbid obesity. Plan/Recommendation Continued all current supportive medical care. Patient has been seen by Ben Hernandez MASSAGE THERAPIST on my behalf, him and I discussed the plan with the patient. Transthoracic echocardiogram reveals EF 60%. Bilateral carotid ultrasound reveals moderate calcified plaque formation in the right carotid bulb and mild plaque formation noted in the left carotid bulb. Patient found to have positive orthostatics. Initiate Josesito hose compression stockings at this time, patient to continue with hydration. Follow up repeat orthostatics, if negative no further cardiac workup indicated. Stable from Cardiology standpoint. Outpatient event monitoring. Additional plan as per the hospital course. Plan discussed with: Patient Dietary Evaluation Review Comments: 1) [id number] + cardiac 2) Glucerna 8floz BID 3) Continue current plan of care Expected Outcomes/Goals: Pt will meet >75% estimated needs Fu 3-5 days Date of Service: Feb 10, 2025 Billing Provider: ALEJO CARRILLO MD Cardiology Common Codes: [id number] HOSP CARE(High ALEJO CARRILLO MD Feb 10, 2025 22:06
--- NOTE | 2025-02-14 10:48 | PEER ---
Peer to Peer Review Time DATE: 02/14/25 TIME: 10:47 Review and Recommendations: Spoke with Dr. Malone approved for inpatient for Sepsis and Syncope. TALIB BERNARD MD Feb 14, 2025 10:48
== END 2025-02-10 14:00 | disposition home or self-care (01) | DRG 872 ==
LOC: ER 06:54 → EDBD 06:54 → OVERFLOW 09:13 → TELE-WESTW 17:58
PROVIDERS: ADMIT Family Medicine; ATTEND Family Medicine
DX: A41.9 Sepsis, unspecified organism (principal); N39.0 Urinary tract infection, site not specified; E11.9 Type 2 diabetes mellitus without complications; I10 Essential (primary) hypertension; J45.909 Unspecified asthma, uncomplicated; E66.01 Morbid (severe) obesity due to excess calories; C50.911 Malignant neoplasm of unspecified site of right female breast; I49.9 Cardiac arrhythmia, unspecified; E78.00 Pure hypercholesterolemia, unspecified; H11.31 Conjunctival hemorrhage, right eye; H54.62 Unqualified visual loss, left eye, normal vision right eye; I95.1 Orthostatic hypotension; Z79.4 Long term (current) use of insulin; Z88.0 Allergy status to penicillin; Z79.2 Long term (current) use of antibiotics; Z85.3 Personal history of malignant neoplasm of breast; Z83.3 Family history of diabetes mellitus; Z82.49 Family history of ischemic heart disease and other diseases of the circulatory system; Z82.3 Family history of stroke; Z79.899 Other long term (current) drug therapy; Z68.34 Body mass index [BMI] 34.0-34.9, adult
CPT/HCPCS: 36415; 70450; 70545; 70551; 71045; 72125; 80048; 80053; 80307; 81001; 82962; 83036; 84443; 84484; 85025; 87040; 87086; 93005; 93306; 93886; 95819; 96374; 97163; G0378; J1885; J2405